=== PATIENT | male | born 1950 | race Caucasian/White ===

== ENCOUNTER 2022-07-29 05:38 | Observation (INO) | payer BC, MEDICARE ==
[2022-07-29] VITALS (17 sets, daily range): BP systolic 100–133; BP diastolic 53–81
[~2022-07-29] VITALS: Ht 177.8 cm; Wt 81.7 kg
[~2022-07-29 05:38] MED LIST: ALLP300T PO; AMLO5TAB2 PO; ASPI325T32 PO; LEVO750T6 PO; LISI10TA2 PO; LISI1TAB PO; NF-ESOM40C PO; RNT150T PO; TERB250T42 PO
[2022-07-29 06:12] LABS: BASOPHILS # (AUTO) 0.1 10^3/uL (0.0-0.1); BASOPHILS % (AUTO) 1 % (0-10); EOSINOPHILS # (AUTO) 1.3 10^3/uL (0.0-0.3); EOSINOPHILS % (AUTO) 9 % (0-10); HEMATOCRIT 40 % (40-54); HEMOGLOBIN 13.5 g/dL (13.3-17.7); LYMPHOCYTES # (AUTO) 2.9 10^3/uL (1.0-4.0); LYMPHOCYTES % (AUTO) 21 % (12-44); MEAN CORPUSCULAR HEMOGLOBIN 31 pg (25-34); MEAN CORPUSCULAR HGB CONC 34 g/dL (32-36); MEAN CORPUSCULAR VOLUME 93 fL (80-99); MEAN PLATELET VOLUME 9.3 fL (9.0-12.2); MONOCYTES # (AUTO) 0.4 10^3/uL (0.0-1.0); MONOCYTES % (AUTO) 3 % (0-12); NEUTROPHILS # (AUTO) 8.7 10^3/uL (1.8-7.8); NEUTROPHILS % (AUTO) 62 % (42-75); PLATELET COUNT 230 10^3/uL (130-400); WHITE BLOOD COUNT 13.9 10^3/uL (4.3-11.0)
[2022-07-29 06:26] LABS: PROTHROMBIN TIME PATIENT 13.9 SEC (12.2-14.7)
[2022-07-29 06:33] LABS: ALANINE AMINOTRANSFERASE 22 U/L (0-55); ALBUMIN 2.9 GM/DL (3.2-4.5); ALKALINE PHOSPHATASE 83 U/L (40-136); BILIRUBIN,TOTAL 0.9 MG/DL (0.1-1.0); BUN/CREATININE RATIO 20; CALCIUM 9.4 MG/DL (8.5-10.1); CARBON DIOXIDE 25 MMOL/L (21-32); CHLORIDE 97 MMOL/L (98-107); CREATININE SERUM 1.32 MG/DL (0.60-1.30); GFR ESTIMATED 57; GLUCOSE 155 MG/DL (70-105); MAGNESIUM 1.5 MG/DL (1.6-2.4); POTASSIUM 3.7 MMOL/L (3.6-5.0); SODIUM 133 MMOL/L (135-145); TOTAL PROTEIN 9.2 GM/DL (6.4-8.2)
--- NOTE | 2022-07-29 06:41 | Diagnostic Imaging Report ---
EXAMINATION: Chest 1 view HISTORY: Syncope COMPARISON: 10/16/2013 FINDINGS: Surgical changes from median sternotomy and CABG. Heart size is normal. There are coarse opacities within the mid and lower lungs bilaterally. No pleural effusion or pneumothorax. Degenerative changes of the thoracic spine. Osseous structures are otherwise intact. IMPRESSION: 1. Coarse interstitial opacities within the lower lungs which could be seen with likely cysts or scarring. Pulmonary edema or infection could be within the differential in the appropriate clinical setting. Dictated by: Dictated on workstation # [id number]
--- NOTE | 2022-07-29 06:44 | ED General ---
General Chief Complaint: Trauma-Non Activation Stated Complaint: FALL,HIT HEAD Nursing Triage Note: PT TO RM 8 VIA WC W REPORTS OF PASSING OUT WHILE SITTING IN CHAIR AT APPROX 0515 THIS AM. PT REPORTS HE GOT HOT AND LIGHTHEADED BEFORE HITTING HEAD ON HAT AND CAP SEWER, ABRASION NOTED. PT A&OX4, REPORTS RECENT GENERALIZED SICKNESS, DENIES PAIN. 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 He was sitting in a chair in the kitchen getting ready for work when he became lightheaded and lost consciousness. He has an abrasion on the right frontal scalp. He denies any significant pain or injury. He is alert and oriented. He has not been feeling well for over a week and had a fever this morning. He saw his doctor in the clinic over a week ago. He is not currently being treated for any acute infectious illness. He has history of coronary artery disease. CABG. He is also a diabetic on oral medications. He denies any chest pain or shortness of breath at present. Oxygen saturation was in the upper 80s during initial assessment and was slowly resuscitated to the low 90s with rest. Crackles were heard on chest auscultation bilaterally. Location Injury Occurred: PT HOME (LOAN PIRES MD) Allergies and Home Medications Allergies Coded Allergies: No Known Drug Allergies (Unverified , 10/16/13) Patient Home Medication List Home Medication List Reviewed: Yes (LOAN PIRES MD) Allopurinol (Zyloprim) 300 Mg Tab, 300 MG PO DAILY, (Reported) Entered as Reported by: VALENTIN PEOPLES on 10/16/13 151 Amlodipine Besylate (Amlodipine Besylate) 5 Mg Tablet, 5 MG PO DAILY, (Reported) Entered as Reported by: SUNNY DUCKWORTH on 10/16/131816 Aspirin (Ecotrin) 325 Mg Tablet.dr, 325 MG PO DAILY, (Reported) Entered as Reported by: VALENTIN PEOPLES on 10/16/13 151 Hctz/Lisinopril (Lisinopril-Hctz 20-12.5 Mg Tab) 1 Each Tablet, 1 EACH PO DAILY, (Reported) Entered as Reported by: SUNNY DUCKWORTH on 10/16/131816 Levofloxacin (Levaquin) 750 Mg Tablet, 750 MG PO DAILY Prescribed by: MARIELENA STEVENS on 10/18/13 1333 Ranitidine Hcl (Zantac 150 Mg) 150 Mg Tablet, 300 MG PO DAILY, (Reported) Entered as Reported by: SUNNY DUCKWORTH on 10/16/13 180 Terbinafine Hcl (Lamisil) 250 Mg Tablet, 1 TAB PO DAILY, (Reported) Entered as Reported by: SUNNY DUCKWORTH on 10/16/131816 Review of Systems Review of Systems Constitutional: see HPI EENTM: see HPI Respiratory: see HPI Cardiovascular: see HPI Gastrointestinal: no symptoms reported Genitourinary: no symptoms reported Musculoskeletal: no symptoms reported Skin: see HPI Psychiatric/Neurological: See HPI Hematologic/Lymphatic: No Symptoms Reported Immunological/Allergic: no symptoms reported (LOAN PIRES MD) Past Kbogfhv-Rfqtau-Mdfnlu Hx Patient Social History Tobacco Use?: No Use of E-Cig and/or Vaping dev: No Substance use?: No Alcohol Use?: No (LOAN PIRES MD) Immunizations Up To Date Influenza Vaccine Up-to-Date: Yes; Up-to-Date First/Initial COVID19 Vaccinat: 2020 Second COVID19 Vaccination Jonny: 2020 Third COVID19 Vaccination Date: 2021 COVID19 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 / PFIZ[employer] X2 PER PT (LOAN PIRES MD) Past Medical History Surgeries: Yes CABG Respiratory: No Cardiac: Yes Coronary Artery Disease Neurological: No Reproductive Disorders: No Sexually Transmitted Disease: No HIV/AIDS: No Gastrointestinal: No Musculoskeletal: No Endocrine: Yes Diabetes, Non-Insulin dep HEENT: No Cancer: No Psychosocial: No Adverse Reaction/Blood Tranf: No (LOAN PIRES MD) Family Medical History Family history: Cardiovascular disease 19 FATHER Family history: Diabetes mellitus 19 FATHER Myocardial infarction 19 FATHER, Onset:57 Psychotic disorder 19 MOTHER ( suicide) Physical Exam-Suspected Sepsis Physical Exam Vital Signs Vital Signs - First Documented 07/29/22 05:38 Temp 36.4 Pulse 110 Resp 22 B/P (MAP) 122/67 (85) Pulse Ox 97 O2 Delivery Room Air (CHRISTINE RODRIGEZ MD) Vital Signs Capillary Refill : Less Than 3 Seconds (LOAN PIRES MD) Blood Pressure Mean: 85 Height, Weight, BMI Height: 5'11.00" Weight: 206lbs. 2.0oz. 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 Subtle erythematous scattered rash.) (LOAN PIRES MD) Focused Exam Lactate Level 07/29/22 05:40: Lactic Acid Level 1.61 (CHRISTINE RODRIGEZ MD) Lactic Acid Level Laboratory Tests Test 07/29/22 05:40 Lactic Acid Level 1.61 MMOL/L (0.50-2.00) (CHRISTINE RODRIGEZ MD) Progress/Results/Core Measures Suspected Sepsis SIRS Temperature: Pulse: 110 Respiratory Rate: 22 Laboratory Tests 07/29/22 05:40: Blood Pressure 122 /67 Mean: 85 07/29/22 05:40: Lactic Acid Level 1.61 Laboratory Tests 07/29/22 05:40: Creatinine 1.32H, Total Bilirubin 0.9 (LOAN PIRES MD) Results/Orders Lab Results Laboratory Tests Test 07/29/22 05:40 07/29/22 05:50 Range/Units White Blood Count 13.9 H 4.3-11.0 10^3/uL Red Blood Count 4.32 4.30-5.52 10^6/uL Hemoglobin 13.5 13.3-17.7 g/dL Hematocrit 40 40-54 % Mean Corpuscular Volume 93 80-99 fL Mean Corpuscular Hemoglobin 31 25-34 pg Mean Corpuscular Hemoglobin Concent 34 32-36 g/dL Red Cell Distribution Width 13.6 10.0-14.5 % Platelet Count 230 130-400 10^3/uL Mean Platelet Volume 9.3 9.0-12.2 fL Immature Granulocyte % (Auto) 4 % Neutrophils (%) (Auto) 62 42-75 % Lymphocytes (%) (Auto) 21 12-44 % Monocytes (%) (Auto) 3 0-12 % Eosinophils (%) (Auto) 9 0-10 % Basophils (%) (Auto) 1 0-10 % Neutrophils # (Auto) 8.7 H 1.8-7.8 10^3/uL Lymphocytes # (Auto) 2.9 1.0-4.0 10^3/uL Monocytes # (Auto) 0.4 0.0-1.0 10^3/uL Eosinophils # (Auto) 1.3 H 0.0-0.3 10^3/uL Basophils # (Auto) 0.1 0.0-0.1 10^3/uL Immature Granulocyte # (Auto) 0.5 H 0.0-0.1 10^3/uL Prothrombin Time 13.9 12.2-14.7 SEC INR Comment 1.0 0.8-1.4 Activated Partial Thromboplast Time 29 24-35 SEC Sodium Level 133 L 135-145 MMOL/L Potassium Level 3.7 3.6-5.0 MMOL/L Chloride Level 97 L 98-107 MMOL/L Carbon Dioxide Level 25 21-32 MMOL/L Anion Gap 11 5-14 MMOL/L Blood Urea Nitrogen 26 H 7-18 MG/DL Creatinine 1.32 H 0.60-1.30 MG/DL Estimat Glomerular Filtration Rate 57 BUN/Creatinine Ratio 20 Glucose Level 155 H 70-105 MG/DL Lactic Acid Level 1.61 0.50-2.00 MMOL/L Calcium Level 9.4 8.5-10.1 MG/DL Corrected Calcium 10.3 H 8.5-10.1 MG/DL Magnesium Level 1.5 L 1.6-2.4 MG/DL Total Bilirubin 0.9 0.1-1.0 MG/DL Aspartate Amino Transf (AST/SGOT) 27 5-34 U/L Alanine Aminotransferase (ALT/SGPT) 22 0-55 U/L Alkaline Phosphatase 83 40-136 U/L Myoglobin 150.5 H 10.0-92.0 NG/ML Troponin I < 0.028 <0.028 NG/ML C-Reactive Protein High Sensitivity 2.88 H 0.00-0.50 MG/DL Total Protein 9.2 H 6.4-8.2 GM/DL Albumin 2.9 L 3.2-4.5 GM/DL Influenza Type A (RT-PCR) Not Detected Not Detecte Influenza Type B (RT-PCR) Not Detected Not Detecte SARS-CoV-2 RNA (RT-PCR) Not Detected Not Detecte (CHRISTINE RODRIGEZ MD) My Orders Orders - CHRISTINE RODRIGEZ MD Magnesium 1 Gm/100 Ml Ivpb (Magnesium Kelly (07/29/22 07:15) Ns Iv 1000 Ml (Sodium Chloride 0.9%) (07/29/22 07:38) Ceftriaxone 1 Gm Pre-Mix (Rocephin 1 Gm (07/29/22 07:45) Azithromycin Injection (Zithromax Inject (07/29/22 07:45) Ct Sandra Chest/Noang Abd-Pelv W (07/29/22 07:38) Iohexol Injection (Omnipaque 350 Mg/Ml 1 (07/29/22 08:00) Received Contrast (Hold Metformin- Contr (07/29/22 08:00) Ns (Ivpb) (Sodium Chloride 0.9% Ivpb Bag (07/29/22 08:00) (CHRISTINE RODRIGEZ MD) Medications Given in ED Current Medications Medications Dose Ordered Sig/Chris Route Start Time Stop Time Status Last Admin Dose Admin Magnesium Sulfate/ Dextrose 100 ml @ 100 mls/hr ONCE ONCE IV 07/29/22 07:15 07/29/22 08:14 DC 07/29/22 07:38 100 MLS/HR (CHRISTINE RODRIGEZ MD) Vital Signs/I&O 07/29/22 07/29/22 05:38 08:37 Temp 36.4 Pulse 110 110 Resp 22 16 B/P (MAP) 122/67 (85) 101/56 Pulse Ox 97 98 O2 Delivery Room Air (CHRISTINE RODRIGEZ MD) Vital Signs/I&O Capillary Refill : Less Than 3 Seconds (LOAN PIRES MD) Blood Pressure Mean: 85 Progress Note : Time: 06:45 Progress Note Patient was interviewed and examined upon arrival. He is being evaluated for both possible sepsis and etiology for syncope. Vital signs are stable. Viral swabs were obtained. EKG demonstrated no ischemia. Care of the patient is being transitioned to Dr. Rodrigez at this time. (LOAN PIRES MD) Progress Note : Time: 07:34 Progress Note Patient care assumed at shift change, 72-year-old with seated syncope. Generalized fatigue and malaise for 1 month. Patient had sepsis protocol initiated by outgoing provider. Eye exam revealed well-developed well-nourished 72-year-old male in no acute distress. Room air oxygen saturations 92% without evidence of respiratory distress. Dry mucous membranes. Small abrasion right frontotemporal scalp with no active bleeding. I did not auscultate crackles. Heart was tachycardic with a gallop. No lower extremity edema. Abdomen soft nontender, nondistended. Diffuse papular rash to the torso and lower extremities. No secondary signs of cellulitis observed. Neurologically no focal deficits. Alert and oriented. Blood pressure 109/57 heart rate 116. I reviewed his laboratory studies, CBC leukocytosis at 13, hemoglobin 13, platelets 230. Chemistry shows mildly elevated BUN and creatinine, low magnesium 1.5. Electrolytes otherwise normal. Slightly elevated CRP. Lactic is less than 2. Troponin is undetectable. Chest x-ray shows nonspecific basilar infiltrates versus scarring. CT head and neck reviewed, no intracranial findings, diffuse rather prominent cervical lymphadenopathy on the cervical spine. EKG normal sinus rhythm, tachycardic with a right bundle branch block, QRS 147 QTc 475. Patient denies any current complaints of headache, extremity pain, chest pain, shortness of breath, nausea vomiting. Resting comfortably. Laboratory findings, imaging findings with patient and family who are at the bedside. Recommended observation due to stated syncope, relative hypoxia reported and abnormal findings on the cervical spine and chest x-ray with leukocytosis. I discussed the case with Dr. Ana Cleveland, hospitalist on-call. She recommends a CT angio of the chest to rule out PE as well as abdomen and pelvis with IV contrast. We will also go ahead and start him on community- acquired pneumonia pathway with Rocephin and azithromycin. Family is comfortable with plan of care. All questions have been sought and answered. (CHRISTINE RODRIGEZ MD) ECG Initial ECG Impression Date: Jul 29, 2022 Initial ECG Impression Time: 05:49 Initial ECG Rate: 107 Initial ECG Rhythm: S.Tach Comment Sinus tachycardia with right bundle branch block. No ST elevation or depression. No axis deviation. PAC noted. (LOAN PIRES MD) Diagnostic Imaging Diagonstic Imaging: Xray Plain Films/CT/US/NM/MRI: chest Comments Chest x-ray viewed by me and report reviewed. See report below: NAME: ALVARO CABRAL [facility] REC#: [id number] PT STATUS: REG ER : 1950 PHYSICIAN: LOAN PIRES MD ADMIT DATE: 07/29/22/ER Draft Date of Exam:07/29/22 CHEST 1 VIEW, AP/PA ONLY EXAMINATION: Chest 1 view HISTORY: Syncope COMPARISON: 10/16/2013 FINDINGS: Surgical changes from median sternotomy and CABG. Heart size is normal. There are coarse opacities within the mid and lower lungs bilaterally. No pleural effusion or pneumothorax. Degenerative changes of the thoracic spine. Osseous structures are otherwise intact. IMPRESSION: 1. Coarse interstitial opacities within the lower lungs which could be seen with likely cysts or scarring. Pulmonary edema or infection could be within the differential in the appropriate clinical setting. Dictated on workstation # [id number] Dict: 07/29/2228 Trans: 07/29/22 0641 CVB [id number] Interpreted by: GABY SCHULER DO (LOAN PIRES MD) Departure Communication (Admissions) Time/Spoke to Admitting Phy: 07:[address] Morris, IP to cardiac step down Time/Spoke to Consulting Phy: 08:[address] Curry (CHRISTINE RODRIGEZ MD) Impression Primary Impression: Syncope and collapse Additional Impressions: Hypoxia Dehydration Pneumonia Qualified Codes: J18.9 - Pneumonia, unspecified organism History of CAD (coronary artery disease) Diabetes Qualified Codes: E11.9 - Type 2 diabetes mellitus without complications Disposition: ADMITTED INPATIENT Condition: Stable Admissions Decision to Admit Reason: Admit from ER (General) Decision to Admit/Date: Jul 29, 2022 Time/Decision to Admit Time: 07:32 (CHRISTINE RODRIGEZ MD) Departure-Patient Inst. Referrals: IVAN GARNER DO (PCP/Family) Primary Care Physician LOAN PIRES MD Jul 29, 2022 06:44 CHRISTINE RODRIGEZ MD Jul 29, 2022 07:38
--- NOTE | 2022-07-29 06:53 | Diagnostic Imaging Report ---
EXAMINATION: CT head and CT cervical spine without contrast. TECHNIQUE: Multiple contiguous axial images were obtained through the brain and cervical spine without the use of intravenous contrast. Sagittal and coronal reformations through the cervical spine were then performed. All CT scans use one or more of the following dose optimizing techniques: automated exposure control, MA and/or KvP adjustment based on patient size and exam type or iterative reconstruction. HISTORY: Head and neck pain after injury. COMPARISON: None available. FINDINGS: HEAD: The ventricles and sulci are normal. No abnormal attenuation of brain parenchyma is present. No acute intracranial hemorrhage or abnormal extra-axial fluid collections are present. Calcification of the intracranial ICAs. No hyperdense vessel. The calvarium is intact. The mastoid air cells are clear. The visualized paranasal sinuses are clear. The orbits are normal. C-SPINE: Vertebral body height and alignment are preserved. No acute fracture, dislocation, or destructive osseous process. There is multilevel facet hypertrophy. There is multilevel cervical spondylosis. The paraspinous soft tissues are normal. There are multiple prominent cervical lymph nodes seen throughout the visualized neck. The visualized thyroid gland is normal. There is atelectasis or scarring within the lung apices. IMPRESSION: 1. No acute intracranial abnormality. 2. Degenerative changes of cervical spine without acute osseous abnormality. 3. Multiple prominent bilateral cervical lymph nodes which are nonspecific and may be reactive although neoplastic process would be within the differential. Recommend correlation with any history of malignancy or lymphoma. Dictated by: Dictated on workstation # [id number]
[2022-07-29] MEDS ORDERED: MAGNESIUM 1 GM/100 ML IVPB 100 ML IV ONE (07:15)
[2022-07-29] MEDS ORDERED: NS IV 1000 ML 1,000 ML IV STA (07:38)
[2022-07-29] MEDS ORDERED: cefTRIAXone 1 GM PRE-MIX 50 ML IV ONE (07:45)
[2022-07-29] MEDS ORDERED: AZITHROMYCIN INJECTION 500 MG in NS (IVPB) 250 ML IV ONE (07:45)
[2022-07-29] MEDS ORDERED: NS 100 ML (IVPB) BAG IV ONE (08:00)
[2022-07-29] MEDS ORDERED: HOLD METFORMIN - RECEIVED CONTRAST 20 ML VIAL IV SCH (08:00)
[2022-07-29] MEDS ORDERED: IOHEXOL 350 MG/ML 100 ML (OMNIPAQUE 350) VIAL IV ONE (08:00)
--- NOTE | 2022-07-29 08:39 | Diagnostic Imaging Report ---
INDICATION: hypoxia, tachycardia, syncope CTA chest, abdomen and pelvis Thin axial sections through the chest, abdomen and pelvis are obtained following intravenous contrast bolus. Multiplanar MIP images were reconstructed and reviewed. All CT scans use one or more of the following dose optimizing techniques: automated exposure control, MA and/or KvP adjustment based on patient size and exam type or iterative reconstruction. COMPARISON: 10/16/2013 CTA CHEST: There is good opacification of pulmonary arteries. No filling defect is seen to indicate pulmonary embolism. There is extensive mural plaque and possible ulceration along the lateral aspect of the aortic arch. This is similar to previous study with mild interval progression. There is no intimal flap abnormality identified. There has been development of predominantly subpleural reticular interstitial disease likely representing fibrosis and small airway disease. Coronary artery calcification is noted with previous bypass. There has been adverse change with development of numerous enlarged bilateral axillary, mediastinal and bilateral hilar lymph nodes. Largest x-ray lymph nodes measure up to 3.3 cm long axis on the left. Aorticopulmonary window lymph nodes measure up to 2.2 cm in size with an approximately 3.4 cm precarinal lymph node. Prominent bilateral hilar lymph nodes and subcarinal lymph nodes are present with the largest subcarinal lymph node reaching 3.5 cm long axis. No significant pleural or pericardial fluid. IMPRESSION: 1. No CTA evidence of pulmonary embolism. There is persistent eccentric mural thrombus and possible ulcerated plaque at the level of the aortic arch. 2. Development of moderate axillary, hilar and mediastinal adenopathy. Lymphoma or metastatic disease is not excluded. 3. Developing fibrotic findings in the periphery of the lungs. CT abdomen and pelvis: There has been development of moderate splenomegaly with spleen measuring approximately 15 cm in craniocaudad dimension and 17 cm in anterior posterior dimension. There is no focal hepatic or splenic lesion. The gallbladder is surgically absent. No pancreatic, adrenal gland or focal renal abnormality is seen. There are probable tiny cortical cysts in both kidneys. Occasional mildly prominent central retroperitoneal lymph nodes are noted without pathologically enlarged abdominal adenopathy. Unopacified images of the bladder are unremarkable. Prominent inguinal lymph nodes measure up to approximately 2.1 cm long axis. External iliac lymph nodes measure up to 3.3 cm long axis on the right. There is moderate aortoiliac atherosclerotic calcification and intramural plaque which has increased when compared to previous study. There is advanced L5-S1 degenerative disc disease. IMPRESSION: 1. Splenomegaly and pelvic adenopathy. Again findings could be related to lymphoma or possible metastatic disease. 2. Worsening aortoiliac atherosclerotic disease with eccentric mural plaque and/or thrombus most pronounced in the mid abdominal aorta. Dictated by: Dictated on workstation # [id number]
[2022-07-29] MEDS: NS IV 1000 ML 1,000 ML IV SCH ×3 (10:40→23:52)
[2022-07-29] MEDS ORDERED: ALLO300T2 PO (12:05)
[2022-07-29] MEDS ORDERED: CETI10TA17 PO (12:05)
[2022-07-29] MEDS ORDERED: LISI1TAB46 PO (12:05)
[2022-07-29] MEDS ORDERED: AMLO-250 PO (12:05)
[2022-07-29] MEDS ORDERED: FURO20TA4 PO (12:05)
[2022-07-29] MEDS ORDERED: MONT-40 PO (12:05)
[2022-07-29] MEDS ORDERED: METF-865 PO (12:05)
[2022-07-29] MEDS ORDERED: PIOG30TA71 PO (12:05)
[2022-07-29] MEDS ORDERED: ASPI-932 PO (12:05)
--- NOTE | 2022-07-29 12:06 | History & Physical ---
SONALI MILES 07/29/22 1206: History of Present Illness History of Present Illness Reason for visit/HPI Patient is a 72 year old male with a past history of CAD, quadruple bypass surgery, and knd-hxizukm-nvilsihmo type II DM who presents to the ED on 07/29 with chief complaint of syncope. He states that he was sitting in the kitchen getting ready for work at about 5:15AM when he began to feel hot, flushed, and light- headed. He sat down and his heard him fall to the ground a few minutes later. The patient does not remember falling, and says the next thing he remembers is being picked up from the floor. The patient hit his head on a senior process analyst during the fall, and there is a small scabbed-over lesion on the right side of the patient's head. Currently, the patient feels well and has no complaints. They have had no further syncopal episodes, however, the patient reports that he is reluctant to get up and walk around for fear of triggering another syncopal episode. The patient has a cough which they state started a couple of days ago. The patient says that is cough is a chronic problem that starts out as a dry cough and progresses over several weeks and starts producing sputum until he visits his PCP and is treated with steroids and antibiotics. The patient is not sure exactly how long this has been going on but states it has been quite a while. The patient also reports having a papular rash with erythema worse on the chest and abdomen, but also present on the back and legs. He reports that these areas are pruritic and that they started showing up about two weeks ago. The patient's states that over the past few months he has been increasingly tired and fatigued. EKG showed sinus tachycardia with RBBB and atri al premature complex. Imaging showed no signs of pulmonary embolism or acute changes, but did reveal worsening aortoiliac atherosclerosis as well as multiple areas of lymphadenopathy. Date of Admission Jul 29, 2022 at 07:30 Time Seen by a Provider: 10:00 I consulted on this patient on 07/29/22 11:54 Attending Physician Hardy Wilder DO Admitting Physician Admitting Physician: Vale Bonilla MD Attending Physician: Vale Bonilla MD Consult Allergies and Home Medications Allergies Coded Allergies: No Known Drug Allergies (Unverified , 10/16/13) Patient Home Medication List Home Medication List Reviewed: Yes Allopurinol (Allopurinol) 300 Mg Tablet, 300 MG PO DAILY, (Reported) Entered as Reported by: SMILEY BUCHANAN on 07/29/221204 Last Action: Continued Amlodipine Besylate (Amlodipine Besylate) 5 Mg Tablet, 2.5 MG PO DAILY, (Reported) Entered as Reported by: SMILEY BUCHANAN on 07/29/221204 Last Action: Held Aspirin (Ecotrin) 325 Mg Tablet.dr, 325 MG PO DAILY, (Reported) Entered as Reported by: SMILEY BUCHANAN on 07/29/221204 Last Action: Held Cetirizine HCl (Cetirizine HCl) 10 Mg Tablet, 10 MG PO HS, (Reported) Entered as Reported by: SMILEY BUCHANAN on 07/29/221204 Last Action: Converted Furosemide (Furosemide) 20 Mg Tablet, 20 MG PO DAILY, (Reported) Entered as Reported by: SMILEY BUCHANAN on 07/29/221204 Last Action: Held Lisinopril/Hydrochlorothiazide (Lisinopril-Hctz 20-12.5 mg Tab) 20 Mg-12.5 Mg Tablet, 1 EA PO DAILY, (Reported) Entered as Reported by: SMILEY BUCHANAN on 07/29/221204 Last Action: Held Metformin HCl (Metformin HCl ER) 500 Mg Tab.er.24h, 1,000 MG PO DAILY, (Reported) Entered as Reported by: SMILEY BUCHANAN on 07/29/221204 Last Action: Held Montelukast Sodium (Montelukast Sodium) 10 Mg Tablet, 10 MG PO DAILY, (Reported) Entered as Reported by: SMILEY BUCHANAN on 07/29/221204 Last Action: Continued Pioglitazone HCl (Pioglitazone HCl) 30 Mg Tablet, 30 MG PO DAILY, (Reported) Entered as Reported by: SMILEY BUCHANAN on 07/29/221204 Last Action: Held Discontinued Medications Allopurinol (Zyloprim) 300 Mg Tab, 300 MG PO DAILY, (Reported) Discontinued Reason: No Longer Taking Entered as Reported by: VALENTIN PEOPLES on 10/16/13 9042 Last Action: Discontinued Amlodipine Besylate (Amlodipine Besylate) 5 Mg Tablet, 5 MG PO DAILY, (Reported) Discontinued Reason: No Longer Taking Entered as Reported by: SUNNY DUCKWORTH on 10/16/131816 Last Action: Discontinued Aspirin (Ecotrin) 325 Mg Tablet.dr, 325 MG PO DAILY, (Reported) Discontinued Reason: No Longer Taking Entered as Reported by: VALENTIN PEOPLES on 10/16/13 151 Last Action: Discontinued Hctz/Lisinopril (Lisinopril-Hctz 20-12.5 Mg Tab) 1 Each Tablet, 1 EACH PO DAILY, (Reported) Discontinued Reason: No Longer Taking Entered as Reported by: SUNNY DUCKWORTH on 10/16/131816 Last Action: Discontinued Levofloxacin (Levaquin) 750 Mg Tablet, 750 MG PO DAILY Discontinued Reason: No Longer Taking Prescribed by: MARIELENA STEVENS on 10/18/13 1333 Last Action: Discontinued Ranitidine Hcl (Zantac 150 Mg) 150 Mg Tablet, 300 MG PO DAILY, (Reported) Discontinued Reason: No Longer Taking Entered as Reported by: SUNNY DUCKWORTH on 10/16/131808 Last Action: Discontinued Terbinafine Hcl (Lamisil) 250 Mg Tablet, 1 TAB PO DAILY, (Reported) Discontinued Reason: No Longer Taking Entered as Reported by: SUNNY DUCKWORTH on 10/16/131816 Last Action: Discontinued Past Wbyymjc-Fqgblj-Ifbmzr Hx Patient Social History Marrital Status: Tobacco Use?: Yes Smoking Status: Former Smoker (quit 34 years ago) Use of E-Cig and/or Vaping dev: No Substance use?: No Alcohol Use?: No (reports 1-2 beers daily until 3 months ago) Additional Alcohol Comments: FORMER DRINKER QUIT 3 MONTHS AGO Pt feels they are or have been: No Immunizations Up To Date Date of Influenza Vaccine: Apr 28, 2022 First/Initial COVID19 Vaccinat: 2020 Second COVID19 Vaccination Jonny: 2020 Tetanus Booster (TDap): Less Than 5 Years Current Status Advance Directives: No Communicates: Verbally Primary Language: Faroese Preferred Spoken Language: Faroese Is interpretation needed?: No Sensory deficits: Vision impairment Implanted or Applied Medical D: None Past Medical History Surgeries: CABG Coronary Artery Disease Sexually Transmitted Disease: No HIV/AIDS: No Diabetes, Non-Insulin dep Adverse Reaction/Blood Tranf: No Family Medical History Family history: Cardiovascular disease 19 FATHER Family history: Diabetes mellitus 19 FATHER Myocardial infarction 19 FATHER, Onset:57 Psychotic disorder 19 MOTHER ( suicide) Review of Systems Constitutional: chills, fever EENTM: No hearing loss, No vision loss Respiratory: cough (dry, mild); No short of breath Cardiovascular: No chest pain, No edema Gastrointestinal: No abdominal pain, No constipation, No diarrhea Genitourinary: No dysuria, No hematuria, No incontinence Musculoskeletal: No muscle stiffness, No muscle cramps Skin: No change in hair/nails; pruritus, rash Psychiatric/Neurological: Denies Numbness, Denies Tingling, Denies Tremors Physical Exam Vital Signs Vital Signs - First Documented 07/29/22 05:38 Temp 36.4 Pulse 110 Resp 22 B/P (MAP) 122/67 (85) Pulse Ox 97 O2 Delivery Room Air Capillary Refill : Less Than 3 Seconds Height, Weight, BMI Height: 5'11.00" Weight: 206lbs. 2.0oz. 93.337690le; 25.11 BMI Method:Stated General Appearance: No Apparent Distress, WD/WN HEENT: PERRL/EOMI, Pharynx Normal Neck: Non Tender, Supple Respiratory: Chest Non Tender, No Accessory Muscle Use, No Respiratory Distress, Crackles (lower lobes b/l) Cardiovascular: No Edema, No JVD, Normal Peripheral Pulses Gastrointestinal: Non Tender, Soft Rectal: Deferred Back: No Vertebral Tenderness Extremity: Normal Capillary Refill, Non Tender, No Pedal Edema Neurologic/Psychiatric: Alert, Oriented x3 Skin: Warm/Dry, Erythema, Rash Lymphatic: No Adenopathy Assessment/Plan Assessment and Plan Syncope Obtaining orthostatic pressures Cardiology consulted Lymphadenopathy Will consult radiology for possible biopsy Hypokalemic - monitor and replace as needed Hyponatremic - started on replacement, will continue to monitor NELLI - IV fluids, monitor BUN & Creatinine Leukocytosis Started on azithromycin Started on ceftriaxone Hyperglycemia - 155 non-fasting Admission Diagnosis Syncope VALE BONILLA MD 07/29/22 2010: Allergies and Home Medications Allergies Coded Allergies: No Known Drug Allergies (Unverified , 10/16/13) Patient Home Medication List Allopurinol (Allopurinol) 300 Mg Tablet, 300 MG PO DAILY, (Reported) Entered as Reported by: SMILEY BUCHANAN on 07/29/22 5789 Last Action: Continued Amlodipine Besylate (Amlodipine Besylate) 5 Mg Tablet, 2.5 MG PO DAILY, (Reported) Entered as Reported by: SMILEY BUCHANAN on 07/29/221204 Last Action: Held Aspirin (Ecotrin) 325 Mg Tablet.dr, 325 MG PO DAILY, (Reported) Entered as Reported by: SMILEY BUCHANAN on 07/29/221204 Last Action: Held Cetirizine HCl (Cetirizine HCl) 10 Mg Tablet, 10 MG PO HS, (Reported) Entered as Reported by: SMILEY BUCHANAN on 07/29/221204 Last Action: Converted Furosemide (Furosemide) 20 Mg Tablet, 20 MG PO DAILY, (Reported) Entered as Reported by: SMILEY BUCHANAN on 07/29/221204 Last Action: Held Lisinopril/Hydrochlorothiazide (Lisinopril-Hctz 20-12.5 mg Tab) 20 Mg-12.5 Mg Tablet, 1 EA PO DAILY, (Reported) Entered as Reported by: SMILEY BUCHANAN on 07/29/221204 Last Action: Held Metformin HCl (Metformin HCl ER) 500 Mg Tab.er.24h, 1,000 MG PO DAILY, (Reported) Entered as Reported by: SMILEY BUCHANAN on 07/29/221204 Last Action: Held Montelukast Sodium (Montelukast Sodium) 10 Mg Tablet, 10 MG PO DAILY, (Reported) Entered as Reported by: SMILEY BUCHANAN on 07/29/221204 Last Action: Continued Pioglitazone HCl (Pioglitazone HCl) 30 Mg Tablet, 30 MG PO DAILY, (Reported) Entered as Reported by: SMILEY BUCHANAN on 07/29/221204 Last Action: Held Discontinued Medications Allopurinol (Zyloprim) 300 Mg Tab, 300 MG PO DAILY, (Reported) Discontinued Reason: No Longer Taking Entered as Reported by: VALENTIN PEOPLES on 10/16/131511 Last Action: Discontinued Amlodipine Besylate (Amlodipine Besylate) 5 Mg Tablet, 5 MG PO DAILY, (Reported) Discontinued Reason: No Longer Taking Entered as Reported by: SUNNY DUCKWORTH on 10/16/131816 Last Action: Discontinued Aspirin (Ecotrin) 325 Mg Tablet.dr, 325 MG PO DAILY, (Reported) Discontinued Reason: No Longer Taking Entered as Reported by: VALENTIN PEOPLES on 10/16/131511 Last Action: Discontinued Hctz/Lisinopril (Lisinopril-Hctz 20-12.5 Mg Tab) 1 Each Tablet, 1 EACH PO DAILY, (Reported) Discontinued Reason: No Longer Taking Entered as Reported by: SUNNY DUCKWORTH on 10/16/131816 Last Action: Discontinued Levofloxacin (Levaquin) 750 Mg Tablet, 750 MG PO DAILY Discontinued Reason: No Longer Taking Prescribed by: MARIELENA STEVENS on 10/18/13 1333 Last Action: Discontinued Ranitidine Hcl (Zantac 150 Mg) 150 Mg Tablet, 300 MG PO DAILY, (Reported) Discontinued Reason: No Longer Taking Entered as Reported by: SUNNY DUCKWORTH on 10/16/13 180 Last Action: Discontinued Terbinafine Hcl (Lamisil) 250 Mg Tablet, 1 TAB PO DAILY, (Reported) Discontinued Reason: No Longer Taking Entered as Reported by: SUNNY DUCKWORTH on 10/16/131816 Last Action: Discontinued Past Aopjnhb-Jyyxxd-Ffsfbu Hx Family Medical History Family history: Cardiovascular disease 19 FATHER Family history: Diabetes mellitus 19 FATHER Myocardial infarction 19 FATHER, Onset:57 Psychotic disorder 19 MOTHER ( suicide) Assessment/Plan Assessment and Plan Patient admitted due to a syncopal episode. He fell and struck head on the senior process analyst. He has had increasing weakness and lightheadedness over the past few weeks worse since starting lasix. He passed out this morning in the kitchen and came to the ER for evaluation. His has been trying to get him in to see his bingo cashier for a while but he has been resistant. CT Head was done and was negative ofr ICH but did note significant cervical lymphadenopaty. Because of that and the syncoep CTA chest was done along with CT abd.plevis. This revealed further adenopathy throughout his chest and pelvis but no PE. He was admitted for further work up. We will get orthostatics, monitor on telemetry, get echo and consult cardiology given significant history of CAD and CABG. I have also discussed the case with Dr Hair, Dr Maxwell, and Dr Robertson regarding his prominent lymphadenopathy. Ultimatley a suitable cervical lymph was identified by surgeon for resection for biopsy. Family was updated on this plan. For his NELLI we will contineu IVF and hold diuretics. Surgery reports plan for OR tomorrow. l Admission Diagnosis Admission Status: Observation Supervisory-Addendum Brief Verification & Attestation Participated in pt care: history, MDM, physical Personally performed: exam, history, MDM, supervision of care Care discussed with: Medical Student Procedures: n/a Results interpretation: Verified all documentation Verification and Attestation of Medical Student E/M Service A medical student performed and documented this service in my presence. I reviewed and verified all information documented by the medical student and made modifications to such information, when appropriate. I personally performed the physical exam and medical decision making. Vale Bonilla, Jul 29, 2022,20:10 SONALI MILES Jul 29, 2022 12:06 VALE BONILLA MD Jul 29, 2022 20:10
[2022-07-29] MEDS ORDERED: predniSONE 20 MG TAB PO NR (13:15)
[2022-07-29] MEDS ORDERED: RT-ALBUTEROL SULF 2.5 MG/3 ML PRE-MIX VIAL INH PRN (16:30)
--- NOTE | 2022-07-29 16:47 | Consultation - Surgery ---
JARRET WEATHERS 07/29/22 1647: History of Present Illness History of Present Illness Patient Consulted On(bridget/time) 07/29/22 16:41 Date Seen by Provider: Jul 29, 2022 Time Seen by Provider: 04:15 Reason for Visit: Syncope History of Present Illness Campbell Guadalupe is a 72yo male presenting due to syncope. Pt noticed sudden onset worsening syncope while getting ready to work this morning around 5am. Pt did lose consciousness and hit his R. frontal scalp before landing on the ground. Pt states that before there was associated flushing and hot flashes before LOC. Pt not sure how long that he was LOC, but thinks it was less than 5min. Pt remained dizzy on his way to the ED. This prompted his visit to the ED. Pt has had syncope before but nothing like this; typically when bending down then bending up get retrieve different things, but slowing down and rest typically helped previous episodes of syncope. Pt currently states he doesn't have dizziness sensation. Upon arrival to ED pt recieved CXR, CT Head/Cervical and CT Chest angio; CXR showed b/l cystic changes and scarring; CT Head showed prominent b/l cervical LAD while CT Chest Angio showed development of nodular axillary, hilar, and mediastinal LAD as well as eccentric mural thrombus and possible ulcerated plaque @ aortic arch; CT Abdomen/Pelvs showed Splenomegaly w/ pelvic LAD. General Surgery was consulted due to generalized LAD. Allergies and Home Medications Allergies Coded Allergies: No Known Drug Allergies (Unverified , 10/16/13) Patient Home Medication List Allopurinol (Allopurinol) 300 Mg Tablet, 300 MG PO DAILY, (Reported) Entered as Reported by: SMILEY BUCHANAN on 07/29/221204 Last Action: Reviewed Amlodipine Besylate (Amlodipine Besylate) 5 Mg Tablet, 2.5 MG PO DAILY, (Reported) Entered as Reported by: SMILEY BUCHANAN on 07/29/221204 Last Action: Reviewed Aspirin (Ecotrin) 325 Mg Tablet.dr, 325 MG PO DAILY, (Reported) Entered as Reported by: SMILEY BUCHANAN on 07/29/221204 Last Action: Reviewed Cetirizine HCl (Cetirizine HCl) 10 Mg Tablet, 10 MG PO HS, (Reported) Entered as Reported by: SMILEY BUCHANAN on 07/29/221204 Last Action: Reviewed Furosemide (Furosemide) 20 Mg Tablet, 20 MG PO DAILY, (Reported) Entered as Reported by: SMILEY BUCHANAN on 07/29/221204 Last Action: Reviewed Lisinopril/Hydrochlorothiazide (Lisinopril-Hctz 20-12.5 mg Tab) 20 Mg-12.5 Mg Tablet, 1 EA PO DAILY, (Reported) Entered as Reported by: SMILEY BUCHANAN on 07/29/221204 Last Action: Reviewed Metformin HCl (Metformin HCl ER) 500 Mg Tab.er.24h, 1,000 MG PO DAILY, (Reported) Entered as Reported by: SMILEY BUCHANAN on 07/29/221204 Last Action: Reviewed Montelukast Sodium (Montelukast Sodium) 10 Mg Tablet, 10 MG PO DAILY, (Reported) Entered as Reported by: SMILEY BUCHANAN on 07/29/221204 Last Action: Reviewed Pioglitazone HCl (Pioglitazone HCl) 30 Mg Tablet, 30 MG PO DAILY, (Reported) Entered as Reported by: SMILEY BUCHANAN on 07/29/221204 Last Action: Reviewed Discontinued Medications Allopurinol (Zyloprim) 300 Mg Tab, 300 MG PO DAILY, (Reported) Discontinued Reason: No Longer Taking Entered as Reported by: VALENTIN PEOPLES on 10/16/131511 Last Action: Discontinued Amlodipine Besylate (Amlodipine Besylate) 5 Mg Tablet, 5 MG PO DAILY, (Reported) Discontinued Reason: No Longer Taking Entered as Reported by: SUNNY DUCKWORTH on 10/16/131816 Last Action: Discontinued Aspirin (Ecotrin) 325 Mg Tablet.dr, 325 MG PO DAILY, (Reported) Discontinued Reason: No Longer Taking Entered as Reported by: VALENTIN PEOPLES on 10/16/131511 Last Action: Discontinued Hctz/Lisinopril (Lisinopril-Hctz 20-12.5 Mg Tab) 1 Each Tablet, 1 EACH PO DAILY, (Reported) Discontinued Reason: No Longer Taking Entered as Reported by: SUNNY DUCKWORTH on 10/16/131816 Last Action: Discontinued Levofloxacin (Levaquin) 750 Mg Tablet, 750 MG PO DAILY Discontinued Reason: No Longer Taking Prescribed by: MARIELENA STEVENS on 10/18/13 1333 Last Action: Discontinued Ranitidine Hcl (Zantac 150 Mg) 150 Mg Tablet, 300 MG PO DAILY, (Reported) Discontinued Reason: No Longer Taking Entered as Reported by: SUNNY DUCKWORTH on 10/16/131808 Last Action: Discontinued Terbinafine Hcl (Lamisil) 250 Mg Tablet, 1 TAB PO DAILY, (Reported) Discontinued Reason: No Longer Taking Entered as Reported by: SUNNY DUCKWORTH on 10/16/131816 Last Action: Discontinued Past Iwwcslo-Zbwnce-Avhicy Hx Patient Social History Smoking Status: Former Smoker (quit 34 years ago) Alcohol Use?: No (reports 1-2 beers daily until 3 months ago) Have you traveled recently?: No Immunizations Up To Date Date of Influenza Vaccine: Apr 28, 2022 Surgeries History of Surgeries: Yes Surgeries: CABG Respiratory History of Respiratory Disorde: No Cardiovascular History of Cardiac Disorders: Yes Cardiac Disorders: Coronary Artery Disease Neurological History of Neurological Disord: No Reproductive System Hx Reproductive Disorders: No Sexually Transmitted Disease: No HIV/AIDS: No Gastrointestinal History of Gastrointestinal Di: No Musculoskeletal History of Musculoskeletal Dis: No Endocrine History of Endocrine Disorders: Yes Endocrine Disorders: Diabetes, Non-Insulin dep HEENT History of HEENT Disorders: No Cancer History of Cancer: No Psychosocial History of Psychiatric Problem: No Blood Transfusions Adverse Reaction to a Blood Tr: No Family Medical History Significant Family History: CAD Over 55 Years Old Family Medial History: Family history: Cardiovascular disease 19 FATHER Family history: Diabetes mellitus 19 FATHER Myocardial infarction 19 FATHER, Onset:57 Psychotic disorder 19 MOTHER ( suicide) Review of Systems-General Constitutional: other (Hot flashes and Fatigue ) EENTM: No eye pain Respiratory: cough; No short of breath Gastrointestinal: No abdominal pain, No diarrhea, No nausea, No vomiting Genitourinary: No dysuria; frequency (Due to water pill) Psychiatric/Neurological: Denies Headache, Denies Numbness; Tingling (Tingling behind ears radiating down neck) Physical Exam-General Problems Physical Exam Vital Signs Vital Signs - First Documented 07/29/22 07/29/22 05:38 15:12 Temp 36.4 Pulse 110 Resp 22 B/P (MAP) 122/67 (85) Pulse Ox 97 O2 Delivery Room Air O2 Flow Rate 0.00 Capillary Refill : Less Than 3 Seconds General Appearance: no apparent distress, other (Generalized Erythematous Rash on Trunk and Extremities ) Neck: non-tender, supple, normal inspection, lymphadenopathy (R) (Non-tender), lymphadenopathy (L) (Non-tender) Respiratory: chest non-tender, lungs clear, normal breath sounds, no respiratory distress, no accessory muscle use Cardiovascular: normal peripheral pulses, regular rate, rhythm, no edema, no JVD, no murmur Peripheral Pulses: 2+ Radial Pulses (R), 2+ Radial Pulses (L) Gastrointestinal: normal bowel sounds, soft, tenderness (Epigastric ) Back: normal inspection Extremities: normal range of motion, non-tender Neurologic/Psychiatric: alert, normal mood/affect, oriented x 3 Skin: normal color, warm/dry Data Review Labs Laboratory Tests 07/29/22 05:40: White Blood Count 13.9H, Red Blood Count 4.32, Hemoglobin 13.5, Hematocrit 40, Mean Corpuscular Volume 93, Mean Corpuscular Hemoglobin 31, Mean Corpuscular Hemoglobin Concent 34, Red Cell Distribution Width 13.6, Platelet Count 230, Mean Platelet Volume 9.3, Immature Granulocyte % (Auto) 4, Neutrophils (%) (Auto) 62, Lymphocytes (%) (Auto) 21, Monocytes (%) (Auto) 3, Eosinophils (%) (Auto) 9, Basophils (%) (Auto) 1, Neutrophils # (Auto) 8.7H, Lymphocytes # (Auto) 2.9, Monocytes # (Auto) 0.4, Eosinophils # (Auto) 1.3H, Basophils # (Auto) 0.1, Immature Granulocyte # (Auto) 0.5H, Prothrombin Time 13.9, INR Comment 1.0, Activated Partial Thromboplast Time 29, Sodium Level 133L, Potassium Level 3.7, Chloride Level 97L, Carbon Dioxide Level 25, Anion Gap 11, Blood Urea Nitrogen 26H, Creatinine 1.32H, Estimat Glomerular Filtration Rate 57, BUN/Creatinine Ratio 20, Glucose Level 155H, Lactic Acid Level 1.61, Calcium Level 9.4, Corrected Calcium 10.3H, Magnesium Level 1.5L, Total Bilirubin 0.9, Aspartate Amino Transf (AST/SGOT) 27, Alanine Aminotransferase (ALT/SGPT) 22, Alkaline Phosphatase 83, Myoglobin 150.5H, Troponin I < 0.028, C-Reactive Protein High Sensitivity 2.88H, Total Protein 9.2H, Albumin 2.9L 07/29/22 05:50: Influenza Type A (RT-PCR) Not Detected, Influenza Type B (RT-PCR) Not Detected, SARS-CoV-2 RNA (RT-PCR) Not Detected 07/29/22 13:47: Troponin I < 0.028 Radiology Date of Exam:07/29/22 CHEST 1 VIEW, AP/PA ONLY EXAMINATION: Chest 1 view HISTORY: Syncope COMPARISON: 10/16/2013 FINDINGS: Surgical changes from median sternotomy and CABG. Heart size is normal. There are coarse opacities within the mid and lower lungs bilaterally. No pleural effusion or pneumothorax. Degenerative changes of the thoracic spine. Osseous structures are otherwise intact. IMPRESSION: 1. Coarse interstitial opacities within the lower lungs which could be seen with likely cysts or scarring. Pulmonary edema or infection could be within the differential in the appropriate clinical setting. Date of Exam:07/29/22 CT HEAD/CERVICAL SPINE WO EXAMINATION: CT head and CT cervical spine without contrast. TECHNIQUE: Multiple contiguous axial images were obtained through the brain and cervical spine without the use of intravenous contrast. Sagittal and coronal reformations through the cervical spine were then performed. All CT scans use one or more of the following dose optimizing techniques: automated exposure control, MA and/or KvP adjustment based on patient size and exam type or iterative reconstruction. HISTORY: Head and neck pain after injury. COMPARISON: None available. FINDINGS: HEAD: The ventricles and sulci are normal. No abnormal attenuation of brain parenchyma is present. No acute intracranial hemorrhage or abnormal extra-axial fluid collections are present. Calcification of the intracranial ICAs. No hyperdense vessel. The calvarium is intact. The mastoid air cells are clear. The visualized paranasal sinuses are clear. The orbits are normal. C-SPINE: Vertebral body height and alignment are preserved. No acute fracture, dislocation, or destructive osseous process. There is multilevel facet hypertrophy. There is multilevel cervical spondylosis. The paraspinous soft tissues are normal. There are multiple prominent cervical lymph nodes seen throughout the visualized neck. The visualized thyroid gland is normal. There is atelectasis or scarring within the lung apices. IMPRESSION: 1. No acute intracranial abnormality. 2. Degenerative changes of cervical spine without acute osseous abnormality. 3. Multiple prominent bilateral cervical lymph nodes which are nonspecific and may be reactive although neoplastic process would be within the differential. Recommend correlation with any history of malignancy or lymphoma. Date of Exam:07/29/22 CT LAST CHEST/NOANG ABD-PELV W INDICATION: hypoxia, tachycardia, syncope CTA chest, abdomen and pelvis Thin axial sections through the chest, abdomen and pelvis are obtained following intravenous contrast bolus. Multiplanar MIP images were reconstructed and reviewed. All CT scans use one or more of the following dose optimizing techniques: automated exposure control, MA and/or KvP adjustment based on patient size and exam type or iterative reconstruction. COMPARISON: 10/16/2013 CTA CHEST: There is good opacification of pulmonary arteries. No filling defect is seen to indicate pulmonary embolism. There is extensive mural plaque and possible ulceration along the lateral aspect of the aortic arch. This is similar to previous study with mild interval progression. There is no intimal flap abnormality identified. There has been development of predominantly subpleural reticular interstitial disease likely representing fibrosis and small airway disease. Coronary artery calcification is noted with previous bypass. There has been adverse change with development of numerous enlarged bilateral axillary, mediastinal and bilateral hilar lymph nodes. Largest x-ray lymph nodes measure up to 3.3 cm long axis on the left. Aorticopulmonary window lymph nodes measure up to 2.2 cm in size with an approximately 3.4 cm precarinal lymph node. Prominent bilateral hilar lymph nodes and subcarinal lymph nodes are present with the largest subcarinal lymph node reaching 3.5 cm long axis. No significant pleural or pericardial fluid. IMPRESSION: 1. No CTA evidence of pulmonary embolism. There is persistent eccentric mural thrombus and possible ulcerated plaque at the level of the aortic arch. 2. Development of moderate axillary, hilar and mediastinal adenopathy. Lymphoma or metastatic disease is not excluded. 3. Developing fibrotic findings in the periphery of the lungs. CT abdomen and pelvis: There has been development of moderate splenomegaly with spleen measuring approximately 15 cm in craniocaudad dimension and 17 cm in anterior posterior dimension. There is no focal hepatic or splenic lesion. The gallbladder is surgically absent. No pancreatic, adrenal gland or focal renal abnormality is seen. There are probable tiny cortical cysts in both kidneys. Occasional mildly prominent central retroperitoneal lymph nodes are noted without pathologically enlarged abdominal adenopathy. Unopacified images of the bladder are unremarkable. Prominent inguinal lymph nodes measure up to approximately 2.1 cm long axis. External iliac lymph nodes measure up to 3.3 cm long axis on the right. There is moderate aortoiliac atherosclerotic calcification and intramural plaque which has increased when compared to previous study. There is advanced L5-S1 degenerative disc disease. IMPRESSION: 1. Splenomegaly and pelvic adenopathy. Again findings could be related to lymphoma or possible metastatic disease. 2. Worsening aortoiliac atherosclerotic disease with eccentric mural plaque and/or thrombus most pronounced in the mid abdominal aorta. Assessment/Plan Assessment/Plan Assessment/Plan Syncope Generalized Lymphadenopathy Rash Leukocytosis NELLI Hyponatremia Hyperglycemia Generalized Non-tender LAD; Raises concern for malignancy; Planning for Surgery tomorrow; NPO after Midnight Consider Infectious Testing for HIV and Syphilis Consider investigation of home medications as cause of Generalized LAD; Pt is on Allopurinol, has skin rash and lymph node enlargement and eosinophila - Consider DRESS Syndrome Erythematous rash on trunk and extremities; presented 3 weeks ago and itchy Prednisone Trend Renal Function w/ Chemistry IVF Consider Sliding Scale Insulin CARL OTERO DO 07/29/222000: History of Present Illness History of Present Illness History of Present Illness Consult requested by Dr Morris for lymph node erosional biopsy Patient admitted for syncopal episode. Patient had a loss of consciousness and hit right side of head. Doing okay now. Patient states has been having low grade fevers recently. Not feeling well. Patient wiht recent pappular, pruritic rash that is diffuse. Patient with ct scans: CT Head showed prominent b/l cervical LAD while CT Chest Angio showed development of nodular axillary, hilar, and mediastinal LAD as well as eccentric mural thrombus and possible ulcerated plaque @ aortic arch; CT Abdomen/Pelvs showed Splenomegaly w/ pelvic LAD. General Surgery was consulted due to generalized LAD. Allergies and Home Medications Allergies Coded Allergies: No Known Drug Allergies (Unverified , 10/16/13) Patient Home Medication List Home Medication List Reviewed: Yes Allopurinol (Allopurinol) 300 Mg Tablet, 300 MG PO DAILY, (Reported) Entered as Reported by: SMILEY BUCHANAN on 07/29/221204 Last Action: Reviewed Amlodipine Besylate (Amlodipine Besylate) 5 Mg Tablet, 2.5 MG PO DAILY, (Reported) Entered as Reported by: SMILEY BUCHANAN on 07/29/221204 Last Action: Reviewed Aspirin (Ecotrin) 325 Mg Tablet., 325 MG PO DAILY, (Reported) Entered as Reported by: SMILEY BUCHANAN on 07/29/221204 Last Action: Reviewed Cetirizine HCl (Cetirizine HCl) 10 Mg Tablet, 10 MG PO HS, (Reported) Entered as Reported by: SMILEY BUCHANAN on 07/29/221204 Last Action: Reviewed Furosemide (Furosemide) 20 Mg Tablet, 20 MG PO DAILY, (Reported) Entered as Reported by: SMILEY BUCHANAN on 07/29/221204 Last Action: Reviewed Lisinopril/Hydrochlorothiazide (Lisinopril-Hctz 20-12.5 mg Tab) 20 Mg-12.5 Mg Tablet, 1 EA PO DAILY, (Reported) Entered as Reported by: SMILEY BUCHANAN on 07/29/221204 Last Action: Reviewed Metformin HCl (Metformin HCl ER) 500 Mg Tab.er.24h, 1,000 MG PO DAILY, (Reported) Entered as Reported by: SMILEY BUCHANAN on 07/29/221204 Last Action: Reviewed Montelukast Sodium (Montelukast Sodium) 10 Mg Tablet, 10 MG PO DAILY, (Reported) Entered as Reported by: SMILEY BUCHANAN on 07/29/221204 Last Action: Reviewed Pioglitazone HCl (Pioglitazone HCl) 30 Mg Tablet, 30 MG PO DAILY, (Reported) Entered as Reported by: SMILEY BUCHANAN on 07/29/221204 Last Action: Reviewed Discontinued Medications Allopurinol (Zyloprim) 300 Mg Tab, 300 MG PO DAILY, (Reported) Discontinued Reason: No Longer Taking Entered as Reported by: VALENTIN PEOPLES on 10/16/131511 Last Action: Discontinued Amlodipine Besylate (Amlodipine Besylate) 5 Mg Tablet, 5 MG PO DAILY, (Reported) Discontinued Reason: No Longer Taking Entered as Reported by: SUNNY DUCKWORTH on 10/16/131816 Last Action: Discontinued Aspirin (Ecotrin) 325 Mg Tablet.dr, 325 MG PO DAILY, (Reported) Discontinued Reason: No Longer Taking Entered as Reported by: VALENTIN PEOPLES on 10/16/131511 Last Action: Discontinued Hctz/Lisinopril (Lisinopril-Hctz 20-12.5 Mg Tab) 1 Each Tablet, 1 EACH PO DAILY, (Reported) Discontinued Reason: No Longer Taking Entered as Reported by: SUNNY DUCKWORTH on 10/16/131816 Last Action: Discontinued Levofloxacin (Levaquin) 750 Mg Tablet, 750 MG PO DAILY Discontinued Reason: No Longer Taking Prescribed by: MARIELENA STEVENS on 10/18/13 1333 Last Action: Discontinued Ranitidine Hcl (Zantac 150 Mg) 150 Mg Tablet, 300 MG PO DAILY, (Reported) Discontinued Reason: No Longer Taking Entered as Reported by: SUNNY DUCKWORTH on 10/16/131808 Last Action: Discontinued Terbinafine Hcl (Lamisil) 250 Mg Tablet, 1 TAB PO DAILY, (Reported) Discontinued Reason: No Longer Taking Entered as Reported by: SUNNY DUCKWORTH on 10/16/131816 Last Action: Discontinued Past Pjjsoos-Ortsdv-Dphicr Hx Reviewed Nursing Assessment Reviewed/Agree w Nursing PMH: Yes Family Medical History Significant Family History: CAD Over 55 Years Old Family Medial History: Family history: Cardiovascular disease 19 FATHER Family history: Diabetes mellitus 19 FATHER Myocardial infarction 19 FATHER, Onset:57 Psychotic disorder 19 MOTHER ( suicide) Review of Systems-General Constitutional: No chills, No diaphoresis; fever (low grade), other (Hot flashes and Fatigue ) EENTM: No blurred vision, No double vision, No eye pain Respiratory: cough; No short of breath Gastrointestinal: No abdominal pain, No diarrhea, No nausea, No vomiting Genitourinary: No dysuria; frequency Musculoskeletal: No gout, No joint pain Skin: rash Psychiatric/Neurological: Denies Headache, Denies Numbness All Other Systems Reviewed Negative Unless Noted: Yes (Negative excepted noted.) Physical Exam-General Problems Physical Exam General Appearance: WD/WN, no apparent distress HEENT: PERRL/EOMI, normal ENT inspection Neck: non-tender, supple Respiratory: chest non-tender, no respiratory distress, no accessory muscle use Cardiovascular: regular rate, rhythm, no JVD Gastrointestinal: non tender, soft; No tenderness Rectal: deferred Back: no CVA tenderness, no vertebral tenderness Extremities: non-tender, no pedal edema Neurologic/Psychiatric: alert, normal mood/affect, oriented x 3 Skin: normal color, warm/dry, rash (pappular rash diffuse) Lymphatic: no adenopathy Assessment/Plan Assessment/Plan Assessment/Plan Syncope Generalized Lymphadenopathy Rash Leukocytosis NELLI Hyponatremia Hyperglycemia Generalized Non-tender LAD; Raises concern for malignancy; Discussed risks and benefits of right neck lymph node excision all other indicated procedures, Planning for Surgery tomorrow; NPO after Midnight Patient understands and agrees with plan. Erythematous rash on trunk and extremities; presented 3 weeks ago and itchy symptomatic management-primary team Prednisone Trend Renal Function w/ Chemistry IVF Supervisory-Addendum Brief Verification & Attestation Participated in pt care: history, MDM, physical Personally performed: exam, history, MDM, supervision of care Care discussed with: Medical Student Procedures: n/a Results interpretation: Verified all documentation Verification and Attestation of Medical Student E/M Service A medical student performed and documented this service in my presence. I reviewed and verified all information documented by the medical student and made modifications to such information, when appropriate. I personally performed the physical exam and medical decision making. Carl Otero, Jul 29, 2022,20:09 JARRET WEATHERS Jul 29, 2022 16:47 CARL OTERO DO Jul 29, 2022 20:01
[2022-07-30] VITALS (12 sets, daily range): BP systolic 97–130; BP diastolic 58–88
[2022-07-30 06:00] LABS: HEMATOCRIT 34 % (40-54); HEMOGLOBIN 11.4 g/dL (13.3-17.7); MEAN CORPUSCULAR HEMOGLOBIN 31 pg (25-34); MEAN CORPUSCULAR HGB CONC 33 g/dL (32-36); MEAN CORPUSCULAR VOLUME 92 fL (80-99); MEAN PLATELET VOLUME 9.3 fL (9.0-12.2); PLATELET COUNT 173 10^3/uL (130-400)
[2022-07-30 06:19] LABS: CALCIUM 8.6 MG/DL (8.5-10.1); CREATININE SERUM 0.88 MG/DL (0.60-1.30); POTASSIUM 4.1 MMOL/L (3.6-5.0)
[2022-07-30] MEDS: predniSONE 20 MG TAB PO SCH (06:27)
--- NOTE | 2022-07-30 06:34 | Progress Note - Surgery ---
JARRET WEATHERS 07/30/22 0634: Subjective Date Seen by a Provider: Jul 30, 2022 Time Seen by a Provider: 06:20 Subjective/Events-last exam Pt was seen and interviewed today. Pt states that he is doing well w/o any complaints. Pt is planning for Right neck lymph node dissection today by Dr. Ambrosio. Pt has been NPO since midnight. Review of Systems General: No Chills, No Fatigue HEENT: No Head Aches Pulmonary: No Dyspnea, No Cough Cardiovascular: No: Chest Pain, Palpitations, Edema Gastrointestinal: No: Nausea, Vomiting, Abdominal Pain, Diarrhea Genitourinary: No Dysuria Neurological: No: Weakness Focused Exam Lactate Level 07/29/22 05:40: Lactic Acid Level 1.61 Objective Exam Vital Signs Date Time Temp Pulse Resp B/P (MAP) Pulse Ox O2 Delivery O2 Flow Rate FiO2 07/30/22 04:00 36.8 89 21 97/64 (75) 95 Room Air 07/30/22 01:00 97 07/30/22 00:00 101 30 125/67 (86) 94 Room Air 07/29/22 23:57 37.1 102 32 133/81 (98) 34 Room Air 07/29/22 20:17 36.9 106 24 130/69 (89) 93 Room Air 07/29/22 20:00 96 Room Air 07/29/22 19:19 94 Room Air 0.00 07/29/22 19:01 111 07/29/22 16:52 36.9 111 24 133/69 (90) 94 Room Air 07/29/22 15:12 95 Room Air 0.00 07/29/22 15:12 36.5 105 95 07/29/22 12:40 113 07/29/22 12:00 107 38 117/58 (77) 95 Room Air 07/29/22 12:00 36.5 105 24 107/56 (73) Room Air 07/29/22 11:45 112 25 107/56 (73) 93 Room Air 07/29/22 11:15 118 22 106/59 (75) Room Air 07/29/22 11:00 116 21 119/58 (78) 94 Room Air 07/29/22 10:51 121 105/71 (82) 111 119/58 (78) 126 111/71 (84) 07/29/22 10:45 116 27 105/71 (82) 96 Room Air 07/29/22 10:30 116 18 115/62 (79) 95 Room Air 07/29/22 10:15 114 21 105/66 (79) 95 Room Air 07/29/22 10:00 108 28 100/57 (71) 96 Room Air 07/29/22 09:45 112 29 113/62 (79) 94 Room Air 07/29/22 09:30 111 19 111/59 (76) 93 Room Air 07/29/22 09:15 111 19 113/53 (73) 95 Room Air 07/29/22 09:00 112 35 116/61 (79) 95 Room Air 07/29/22 09:00 97 Room Air 07/29/22 08:56 112 07/29/22 08:37 110 16 101/56 98 I & O 07/30/22 07:00 Intake Total 4100 ml Balance 4100 ml Capillary Refill : Less Than 3 Seconds General Appearance: No Apparent Distress, WD/WN HEENT: PERRL/EOMI, Pharynx Normal Neck: Full Range of Motion, Normal Inspection, Non Tender, Supple, Lymphadenopathy (L), Lymphadenopathy (R) Respiratory: Chest Non Tender, No Accessory Muscle Use, No Respiratory Distress, Crackles (lower lobes b/l) Cardiovascular: Regular Rate, Rhythm, No Edema, No JVD, Normal Peripheral Pulses Peripheral Pulses: 2+ Radial Pulses (R), 2+ Radial Pulses (L) Gastrointestinal: normal bowel sounds, non tender, soft Extremity: Normal Capillary Refill, Normal Inspection, Non Tender, No Calf Tenderness, No Pedal Edema Neurologic/Psychiatric: Alert, Oriented x3 Skin: Warm/Dry, Erythema, Rash Lymphatic: Other (B/l Inguinal Lymph Node enlargement; Non-tender) Results Lab Laboratory Tests 07/29/22 13:47: Troponin I < 0.028 07/30/22 05:45: White Blood Count 12.0H, Red Blood Count 3.72L, Hemoglobin 11.4L, Hematocrit 34L , Mean Corpuscular Volume 92, Mean Corpuscular Hemoglobin 31, Mean Corpuscular Hemoglobin Concent 33, Red Cell Distribution Width 13.2, Platelet Count 173, Mean Platelet Volume 9.3, Sodium Level 132L, Potassium Level 4.1, Chloride Level 102, Carbon Dioxide Level 22, Anion Gap 8, Blood Urea Nitrogen 19H, Creatinine 0.88, Estimat Glomerular Filtration Rate 90, BUN/Creatinine Ratio 22, Glucose Level 198H, Calcium Level 8.6, Triglycerides Level 86, Cholesterol Level 96, LDL Cholesterol Direct 63, VLDL Cholesterol 17, HDL Cholesterol 19L Assessment/Plan Assessment/Plan Assessment/Plan Syncope Generalized Lymphadenopathy Rash Leukocytosis NELLI Hyponatremia Hyperglycemia Generalized Non-tender LAD; Raises concern for malignancy; Discussed risks and benefits of right neck lymph node excision all other indicated procedures yesterday, Planning for Surgery today; Pt has been NPO after Midnight; Patient understands and agrees with plan. Erythematous rash on trunk and extremities; presented 3 weeks ago and itchy symptomatic management-primary team Prednisone Trend Renal Function w/ Chemistry IVF MARK AMBROSIO DO 07/30/22 2017: Subjective Subjective/Events-last exam Paitent with no new complaints. NPO for right neck excision of lymph node. Currently denies n/v fever sweats chills shortness of breath or chest pain. Objective Exam General Appearance: No Apparent Distress, WD/WN HEENT: PERRL/EOMI, Normal ENT Inspection Neck: Normal Inspection, Supple, Lymphadenopathy (L), Lymphadenopathy (R) Respiratory: Chest Non Tender, No Accessory Muscle Use, No Respiratory Distress Cardiovascular: Regular Rate, Rhythm, No JVD Gastrointestinal: non tender, soft Extremity: Non Tender, No Calf Tenderness Neurologic/Psychiatric: Alert, Oriented x3 Skin: Warm/Dry, Rash Lymphatic: No Adenopathy Assessment/Plan Assessment/Plan Assessment/Plan Syncope Generalized Lymphadenopathy Rash Leukocytosis NELLI Hyponatremia Hyperglycemia Generalized Non-tender LAD; Raises concern for malignancy; Discussed risks and benefits of right neck lymph node excision all other indicated procedures yesterday, Planning for Surgery today; Pt has been NPO since Midnight; Patient understands and agrees with plan. Erythematous rash on trunk and extremities; presented 3 weeks ago and itchy symptomatic management-primary team Prednisone Trend Renal Function w/ Chemistry IVF Supervisory-Addendum Brief Verification & Attestation Participated in pt care: history, MDM, physical Personally performed: exam, history, MDM, supervision of care Care discussed with: Medical Student Procedures: n/a Results interpretation: Verified all documentation Verification and Attestation of Medical Student E/M Service A medical student performed and documented this service in my presence. I reviewed and verified all information documented by the medical student and made modifications to such information, when appropriate. I personally performed the physical exam and medical decision making. Mark Ambrosio, Jul 30, 2022,16:17 JARRET WEATHERS Jul 30, 2022 06:34 MARK AMBROSIO DO Jul 30, 2022 20:17
--- NOTE | 2022-07-30 08:56 | Cardiology Progress Note ---
Subjective Date Seen by Provider: Jul 30, 2022 Time Seen by Provider: 08:15 Subjective/Events-last exam No acute events overnight. TTE with normal LV/RV function. No further syncope. For biopsy today. Focused Exam Lactate Level 07/29/22 05:40: Lactic Acid Level 1.61 Objective-Cardiology Exam Last Set of Vital Signs Vital Signs 07/29/22 07/30/22 19:19 08:00 Temp 36.7 Pulse 93 Resp 18 B/P (MAP) 115/67 (83) Pulse Ox 97 O2 Delivery Room Air O2 Flow Rate 0.00 I&O Intake and Output 07/30/22 00:00 Intake Total 4100 ml Balance 4100 ml Intake Oral 1700 ml IV Total 2400 ml # Voids 3 Daily Weight Change No General: Alert, Oriented X3, No Acute Distress HEENT: Atraumatic Neck: Supple, No JVD Lungs: Clear to Auscultation, Normal Air Movement Heart: Regular Rate, Normal S1, Normal S2, No Murmurs Abdomen: Normal Bowel Sounds Extremities: No Clubbing, No Cyanosis, No Edema Psych/Mental Status: Mental Status NL Results Lab Laboratory Tests 07/30/22 05:45 A/P-Cardiology Assessment/Plan 72 year old male with a past history of CAD s/p 4v CABG, and bsp-sylccli-rtrnglghy type II DM who presents to the ED on 07/29 with chief complaint of syncope. Pt also noted fatigue, night sweats for the past several months and found to have mediastinal and hilar LAD on CT. ## Lymphadenopathy: B symptoms x 2-3Months. LAD noted on CT - for bx today ## Syncope: Pt reported that he was on norvasc, lisinopril and Hctz and lasix was initiated for hand swelling. He notes that his pre-syncopal sxs worsened after lasix initiation. - home with painter and grader cork for at least 2 weeks - dc lasix, hctz and lisinopirl - re-start norvasc 5 mp o QD monotherapy for now - monitor BPS - suspect syncopal episode was seondary to lasix/hctz/lisnipril/norvasc combination- probably too much anti-HTN effect for this patient ## CAD: - pt should be restarted on ASA post biopsy - he should also start atorvastatin 40 qhs ## Dispo: - f/u with primary commercial review appraiser as outpt DENNY HODGE MD Jul 30, 2022 08:56
[2022-07-30] MEDS ORDERED: AZITHROMYCIN 500 MG/NS 250 ML IVPB IV SCH ×2 (09:00)
[2022-07-30] MEDS ORDERED: HydroCHLOROthiazide CAP/TABLET 12.5 MG TAB PO SCH (09:00)
[2022-07-30] MEDS: cefTRIAXone 1 GM IV (PRE-MIX) 50 ML IV SCH (09:01)
[2022-07-30] MEDS: amLODIPine 5 MG (NORVASC) TAB PO SCH (09:02)
[2022-07-30] MEDS: MONTELUKAST 10 MG (SINGULAIR) TAB PO SCH (09:02)
[2022-07-30] MEDS: ALLOPURINOL 300 MG (ZYLOPRIM) TAB PO SCH (09:03)
[2022-07-30] MEDS: NS IV 1000 ML 1,000 ML IV SCH (10:49)
[2022-07-30] MEDS: inSUlin ASPART (NovoLOG) 1 UNIT/0.01 ML (CHARGE PER UNIT) SC SCH ×3 (11:12→20:42)
--- NOTE | 2022-07-30 12:09 | Progress Note ---
SONALI MILES 07/30/22 1209: Subjective Date Seen by a Provider: Jul 30, 2022 Time Seen by a Provider: 10:00 Subjective/Events-last exam Patient is awake and alert in his bed this morning, at bedside. Patient reports that he feels well this morning and has had no further syncopal episodes. He is scheduled for a lymph node biopsy this afternoon and is currently being held NPO. The patient's rash appears the same as yesterday. He states that the steroid cream has helped somewhat with the pruritus, but that it is still itchy. Patient has no other complaints. Review of Systems General: No Chills, No Night Sweats HEENT: No Head Aches, No Visual Changes Pulmonary: No Cough Cardiovascular: No: Chest Pain, Lt Headedness Gastrointestinal: No: Nausea, Vomiting Genitourinary: No Incontinence, No Hematuria Musculoskeletal: No: neck pain, back pain Neurological: No: Weakness, Numbness Focused Exam Lactate Level 07/29/22 05:40: Lactic Acid Level 1.61 Objective Exam Last Set of Vital Signs Vital Signs Date Time Temp Pulse Resp B/P (MAP) Pulse Ox O2 Delivery O2 Flow Rate FiO2 07/30/22 08:00 Room Air 07/30/22 08:00 36.7 93 18 115/67 (83) 97 07/29/22 19:19 0.00 Capillary Refill : Less Than 3 Seconds I&O Intake and Output 07/30/22 00:00 Intake Total 4100 ml Balance 4100 ml Intake Oral 1700 ml IV Total 2400 ml # Voids 3 Daily Weight Change No General: Alert, Oriented X3, Cooperative HEENT: Atraumatic, PERRLA Neck: Supple Lungs: Clear to Auscultation Heart: Regular Rate, No Murmurs Abdomen: Soft, No Tenderness Extremities: No Edema, Normal Pulses Skin: Other (Rash across the entire trunk, erythematous, pruritic) Neuro: Normal Speech, Sensation Intact Results Lab Laboratory Tests 07/29/22 13:47: Troponin I < 0.028 07/30/22 05:45: White Blood Count 12.0H, Red Blood Count 3.72L, Hemoglobin 11.4L, Hematocrit 34L , Mean Corpuscular Volume 92, Mean Corpuscular Hemoglobin 31, Mean Corpuscular Hemoglobin Concent 33, Red Cell Distribution Width 13.2, Platelet Count 173, Mean Platelet Volume 9.3, Sodium Level 132L, Potassium Level 4.1, Chloride Level 102, Carbon Dioxide Level 22, Anion Gap 8, Blood Urea Nitrogen 19H, Creatinine 0.88, Estimat Glomerular Filtration Rate 90, BUN/Creatinine Ratio 22, Glucose Level 198H, Calcium Level 8.6, Triglycerides Level 86, Cholesterol Level 96, LDL Cholesterol Direct 63, VLDL Cholesterol 17, HDL Cholesterol 19L 07/30/22 11:04: Glucometer 186H Assessment/Plan Assessment/Plan Assess & Plan/Chief Complaint Syncope Orthostatic pressures normal Holding lisinopril and HCTZ, will restart on Norvasc only Cardiology consulted Continue IV fluids Lymphadenopathy Undergoing lymph node biopsy this afternoon Will refer to oncology Non insulin dependent type II DM Glucose of 198 this morning, will start on SSI Holding metformin Anemia Mild, possibly dilutional Will track and trend Hemoglobin Clinical Quality Measures Admission Status Admission Dx Syncope VALE MORRIS MD 07/30/22 1435: Assessment/Plan Assessment/Plan Assess & Plan/Chief Complaint Patient reports feeling better today. No complaints other than being hungry. OR planned from later today to get pathology.No further syncopal episodes. NELLI resolved. Will decrease IVF after surgery when can take PO again. Supervisory-Addendum Brief Verification & Attestation Participated in pt care: history, MDM, physical Personally performed: exam, history, MDM, supervision of care Care discussed with: Medical Student Procedures: n/a Results interpretation: Verified all documentation Verification and Attestation of Medical Student E/M Service A medical student performed and documented this service in my presence. I reviewed and verified all information documented by the medical student and made modifications to such information, when appropriate. I personally performed the physical exam and medical decision making. Vale Morris, Jul 30, 2022,14:32 SONALI MILES Jul 30, 2022 12:09 VALE MORRIS MD Jul 30, 2022 14:35
[2022-07-30] MEDS ORDERED: fentaNYL INJ 100 MCG/2 ML AMP ONE (16:04)
[2022-07-30] MEDS ORDERED: MIDAZOLAM 2 MG/2 ML (VERSED) VIAL ONE (16:04)
[2022-07-30] MEDS ORDERED: SEVOFLURANE (ULTANE) 15 ML INHAL SOLN ONE (16:04)
[2022-07-30] MEDS ORDERED: proPOfol 200 MG/20 ML (DIPRIVAN) VIAL IV ONE (16:04)
[2022-07-30] MEDS ORDERED: ONDANSETRON 4 MG/2 ML (SDV) Z0FRAN ONE (16:04)
[2022-07-30] MEDS ORDERED: LIDOCAINE PF 2% 5 ML (XYLOCAINE) VIAL ONE (16:04)
[2022-07-30] MEDS ORDERED: LIDOCAINE/EPI 1%-1:100,000 (XYLOCAINE) 30ML ONE (16:14)
[2022-07-30] MEDS ORDERED: LACTATED RINGERS 1,000 ML IV PRN (16:45)
--- NOTE | 2022-07-30 16:56 | Anesthesia-General Post-Op ---
General Patient Condition Mental Status/LOC: Same as Preop Cardiovascular: Satisfactory Nausea/Vomiting: Absent Respiratory: Satisfactory Pain: Controlled Complications: Absent Post Op Complications Complications None Follow Up Care/Instructions Patient Instructions None needed. Anesthesia/Patient Condition Patient Condition Patient is doing well, no complaints, stable vital signs, no apparent adverse anesthesia problems. No complications reported per nursing. LELA URRUTIA CRNA Jul 30, 2022 16:56
[2022-07-30] MEDS ORDERED: HYDROmorphone 2 MG/ML VIAL (DILAUDID) IV ONE (17:00)
[2022-07-30] MEDS ORDERED: MEPERIDINE (DEMEROL) INJ 50 MG/ML IVP ONE (17:00)
[2022-07-30] MEDS ORDERED: morphine INJ 10 MG/ML 1ML (SYR OR VIAL) IVP ONE (17:00)
[2022-07-30] MEDS ORDERED: ONDANSETRON 4 MG/2 ML (SDV) Z0FRAN IVP PRN (17:00)
[2022-07-30] MEDS ORDERED: LORATADINE (CLARITIN) 10 MG TAB PO SCH (21:00)
--- NOTE | 2022-07-31 03:11 | OPERATIVE REPORT ---
DATE OF SERVICE: 07/30/2022 PREOPERATIVE DIAGNOSIS: Lymphadenopathy. POSTOPERATIVE DIAGNOSIS: Lymphadenopathy. PROCEDURE: Excision of right neck lymph node. SURGEON: Mark Ambrosio DO ANESTHESIA: General. ESTIMATED BLOOD LOSS: Minimal. COMPLICATIONS: None. INDICATIONS: The patient is a 72-year-old male with diffuse lymphadenopathy. He has a palpable node on the right neck was easily accessed. We discussed risks and benefits of excision. He understands risks and benefits and wishes to proceed. Consent was signed and on chart. DESCRIPTION OF PROCEDURE: The patient was taken to the operating suite where he was prepped and draped in sterile fashion. Timeout was performed. Local anesthetic was infiltrated around the node that was palpable. A 15 blade scalpel was used to make a skin incision over the neck. Cautery was used to dissect down through subcutaneous tissues. The lymph node was able to be dissected around both bluntly and with cautery and excised. This was sent for fresh specimen. Hemostasis was achieved. The skin was then closed using 4-0 Monocryl in a subcuticular running fashion. The skin was then closed with a Skin Affix after the area was washed and dried. The patient tolerated the procedure well without any complications, taken to recovery room in stable condition. Job ID: [id number] DocumentID: [id number] Dictated Date: 07/30/2022 21:03:44 Pet Feeder Date: 07/31/2022 03:08:00 Dictated By: MARK AMBROSIO DO
[2022-07-31 03:53] VITALS: BP 123/67
[2022-07-31 04:00] VITALS: BP 125/67
[2022-07-31] MEDS: NS IV 1000 ML 1,000 ML IV SCH (06:10)
[2022-07-31] MEDS: predniSONE 20 MG TAB PO SCH (06:10)
[2022-07-31] MEDS: inSUlin ASPART (NovoLOG) 1 UNIT/0.01 ML (CHARGE PER UNIT) SC SCH ×2 (06:10→10:56)
--- NOTE | 2022-07-31 06:53 | Progress Note - Surgery ---
JARRET WEATHERS 07/31/22 0653: Subjective Date Seen by a Provider: Jul 31, 2022 Time Seen by a Provider: 06:16 Subjective/Events-last exam Pt is doing well s/p R. cervical lymph node dissection. Pt was laying in bed taking medication w/ nurse during interview and assessment. Pt's incision intact and dry. Pt states that he is feeling better than yesterday, Pt is not currently in any pain. Pt states that his generalized body rash is not as itchy compared to admission. Last night patient tolerated his 60g/m CHO dinner. Pt does not have any current complaints. Review of Systems General: No Chills HEENT: No Head Aches Pulmonary: No Dyspnea Cardiovascular: No: Chest Pain, Palpitations Gastrointestinal: No: Nausea, Vomiting, Diarrhea Genitourinary: No Dysuria, No Frequency Musculoskeletal: No: neck pain Neurological: No: Weakness Focused Exam Lactate Level 07/29/22 05:40: Lactic Acid Level 1.61 Objective Exam Vital Signs Date Time Temp Pulse Resp B/P (MAP) Pulse Ox O2 Delivery O2 Flow Rate FiO2 07/31/22 04:00 93 20 125/67 (86) Room Air 07/31/22 03:53 36.5 92 18 123/67 (85) 89 Room Air 07/31/22 01:00 93 07/30/22 23:44 36.9 90 21 117/68 (84) 93 Room Air 07/30/22 20:00 92 Room Air 07/30/22 20:00 36.2 101 22 129/66 (87) 95 Room Air 07/30/22 19:00 101 07/30/22 17:35 Room Air 07/30/22 17:30 Room Air 07/30/22 17:30 36.9 20 123/88 (100) 96 Room Air 07/30/22 17:20 20 126/66 (86) 96 Room Air 07/30/22 17:15 Room Air 07/30/22 17:10 20 130/68 (88) 98 OxyMask 3.00 07/30/22 17:00 20 109/58 (75) 99 OxyMask 6.00 07/30/22 17:00 OxyMask 4.00 07/30/22 16:49 OxyMask 6.00 07/30/22 16:49 37.4 20 124/66 (85) 99 OxyMask 6.00 07/30/22 16:00 36.5 96 19 128/72 (90) 95 Room Air 07/30/22 12:47 96 07/30/22 12:00 36.1 96 30 124/70 (88) 97 Room Air 07/30/22 08:00 Room Air 07/30/22 08:00 36.7 93 18 115/67 (83) 97 Room Air 07/30/22 07:16 89 I & O 07/31/22 07:00 Intake Total 2500 ml Output Total 2800 ml Balance -300 ml Capillary Refill : Less Than 3 SecondsLess Than 3 Seconds General Appearance: No Apparent Distress, WD/WN HEENT: PERRL/EOMI, Normal ENT Inspection Neck: Normal Inspection, Supple, Lymphadenopathy (L), Lymphadenopathy (R) Respiratory: Chest Non Tender, No Accessory Muscle Use, No Respiratory Distress Cardiovascular: Regular Rate, Rhythm, No JVD, Normal Peripheral Pulses Peripheral Pulses: 2+ Radial Pulses (R), 2+ Radial Pulses (L) Gastrointestinal: non tender, soft Extremity: Non Tender, No Calf Tenderness Neurologic/Psychiatric: Alert, Oriented x3 Skin: Warm/Dry, Rash Lymphatic: No Adenopathy Results Lab Laboratory Tests 07/30/22 11:04: Glucometer 186H 07/30/22 15:19: Glucometer 174H 07/30/22 20:39: Glucometer 308H 07/31/22 06:09: Glucometer 97 Microbiology 07/29/22 MRSA Screen - Final, Complete MRSA not isolated 07/29/22 Blood Culture - Preliminary, Resulted No growth Assessment/Plan Assessment/Plan Assessment/Plan Syncope S/P Right Cervical Lymph Node Dissection Generalized Lymphadenopathy Rash Leukocytosis NELLI Hyponatremia Hyperglycemia S/P Right Cervical Lymph Node Dissection; Incision intact and dry No further syncopal episodes Generalized Non-tender LAD Erythematous rash on trunk and extremities; presented 3 weeks ago and itchy symptomatic management-primary team Prednisone NELLI improved Consider Taper IVF MARK AMBROSIO DO 07/31/222123: Subjective Subjective/Events-last exam No complaints. STates going home today. Pain controlled. Rash improving. Denies n/v fever sweats chills shortness of breath or chest pain. Objective Exam General Appearance: No Apparent Distress, WD/WN HEENT: PERRL/EOMI, Normal ENT Inspection Neck: Normal Inspection, Supple Respiratory: Chest Non Tender, No Accessory Muscle Use, No Respiratory Distress Cardiovascular: Regular Rate, Rhythm, No JVD Gastrointestinal: non tender, soft Extremity: Non Tender, No Calf Tenderness Skin: Warm/Dry, Rash (skin incision right neck c/d/i no signs infection) Lymphatic: No Adenopathy Assessment/Plan Assessment/Plan Assessment/Plan generalized lymphadenopathy no issues from right lymph node excisional biopsy. await biopsy results follow up arranged all questions answered. Supervisory-Addendum Brief Verification & Attestation Participated in pt care: history, MDM, physical Personally performed: exam, history, MDM, supervision of care Care discussed with: Medical Student Procedures: n/a Results interpretation: Verified all documentation Verification and Attestation of Medical Student E/M Service A medical student performed and documented this service in my presence. I reviewed and verified all information documented by the medical student and made modifications to such information, when appropriate. I personally performed the physical exam and medical decision making. Mark Ambrosio, Jul 31, 2022,21:23 JARRET WEATHERS Jul 31, 2022 06:53 MARK AMBROSIO DO Jul 31, 2022 21:24
[2022-07-31 07:54] LABS: HEMATOCRIT 34 % (40-54); HEMOGLOBIN 11.5 g/dL (13.3-17.7); MEAN CORPUSCULAR HEMOGLOBIN 31 pg (25-34); MEAN CORPUSCULAR HGB CONC 33 g/dL (32-36); MEAN CORPUSCULAR VOLUME 94 fL (80-99); MEAN PLATELET VOLUME 9.4 fL (9.0-12.2); PLATELET COUNT 170 10^3/uL (130-400); WHITE BLOOD COUNT 15.1 10^3/uL (4.3-11.0)
[2022-07-31 08:00] VITALS: BP 125/71
[2022-07-31 08:16] LABS: CALCIUM 8.5 MG/DL (8.5-10.1); CREATININE SERUM 0.86 MG/DL (0.60-1.30); POTASSIUM 4.1 MMOL/L (3.6-5.0)
[2022-07-31] MEDS: ALLOPURINOL 300 MG (ZYLOPRIM) TAB PO SCH (08:21)
[2022-07-31] MEDS: amLODIPine 5 MG (NORVASC) TAB PO SCH (08:21)
[2022-07-31] MEDS: MONTELUKAST 10 MG (SINGULAIR) TAB PO SCH (08:22)
[2022-07-31] MEDS: cefTRIAXone 1 GM IV (PRE-MIX) 50 ML IV SCH (08:22)
[2022-07-31] MEDS ORDERED: AZITHROMYCIN 250 MG TAB (ZITHROMAX) PO SCH (09:00)
--- NOTE | 2022-07-31 10:16 | Progress Note - Cardiology ---
Cardiology SOAP Progress Note Subjective: Sitting up in bed States no further episodes of dizzines, syncope or near syncope No c/o CP Feels breathing is ok today Objective: I&O/Vital Signs Weight (Pounds): 206 Weight (Ounces): 2.0 Weight (Calculated Kilograms): 93.081897 Constitutional: AAO x 3, well-developed, other (thin) Respiratory: chest expansion is symmetric, chest is bilaterally symmetric, other (coarse breath sounds) Cardiovascular: regular rate-rhythm, tachycardia Gastrointestional: No tender; soft, audible bowel sounds Extremities: no lower extremity edema bilateral Neurologic/Psychiatric: grossly intact (moves all extremities) Skin: warm/dry, other (Abrasion on right frontal scalp. Subtle erythematous scattered rash.) Results/Procedures: Labs Microbiology 07/29/22 MRSA Screen - Final, Complete MRSA not isolated 07/29/22 Blood Culture - Final, Complete No growth A/P: Assessment: Syncope: Pt reported that he was on norvasc, lisinopril and Hctz and lasix was initiated for hand swelling. He notes that his pre-syncopal sxs worsened after lasix initiation. - felt to be orthostatic hypotension d/t multi-drug regimen - no further episodes following reduction in regimen - Echocardiogram of 07-29-[address] Curry showed LVEF 55-60%. PASP 22 mmHg History of CAD - s/p 4v CABG by Dr. Noyola at [facility] in [place], [place] - has not followed up with a cost analyst Type II DM Lymphadenopathy - CTA of the chest on 07-30-22: No CTA evidence of pulmonary embolism. There is persistent eccentric mural thrombus and possible ulcerated plaque at the level of the aortic arch. Development of moderate axillary, hilar and mediastinal adenopathy. Lymphoma or metastatic disease is not excluded.Developing fibrotic findings in the periphery of the lungs. - CTA abd/pelvis on 07-30-22: Splenomegaly and pelvic adenopathy. Again findings could be related to lymphoma or possible metastatic disease. Worsening aortoiliac atherosclerotic disease with eccentric mural plaque and/or thrombus most pronounced in the mid abdominal aorta. - Biopsy yesterday by Dr. Ambrosio - CTA head and neck on 07-30-22: No acute intracranial abnormality.Degenerative changes of cervical spine without acute osseous abnormality. Multiple prominent bilateral cervical lymph nodes which are nonspecific and may be reactive although neoplastic process would be within the differential. Recommend correlation with any history of malignancy or lymphoma. Plan: Management of possible lymphoma is per medical services - awaiting biopsy results Continue current cardiac regimen No further episodes of syncope following reduction in medications (syncope was from a sitting position) - consider out pt property assessment monitor when discharged Monitor lab Further recs will be based on his hospital course KERA JEAN Jul 31, 2022 10:16
--- NOTE | 2022-07-31 10:37 | Discharge Inst-Simple/Standard ---
Discharge Inst-Standard Patient Instructions/Follow Up Plan of Care/Instructions/FU: Please continue to take your medications as written. Please follow up with your primary care doctor to follow up this hospital stay. Activity as Tolerated: Yes Discharge Diet: Cardiac Diet Return to The Hospital For: Chest pain, shortness of breath, passing out, fever, weakness, if you feel you are getting worse. VALE BONILLA MD Jul 31, 2022 10:37
[2022-07-31] MEDS ORDERED: CEPH500T PO (10:40)
[2022-07-31] MEDS ORDERED: PRD20T PO (10:40)
[2022-07-31] MEDS ORDERED: ATOR40TA PO (10:40)
[2022-07-31] MEDS ORDERED: AMLO-250 PO (10:40)
[2022-07-31] MEDS ORDERED: AZIT250T12 PO (10:40)
[2022-07-31 11:49] VITALS: BP 131/76
[2022-07-31 12:19] VITALS: BP 132/86
--- NOTE | 2022-07-31 13:36 | Progress Note ---
Subjective Date Seen by a Provider: Jul 31, 2022 Time Seen by a Provider: 11:00 Subjective/Events-last exam Patient is laying comfortably in bed with at bedside. Patient reports that he feels well and that his condition continues to improve. He has had no further episodes of syncope since admission. The patient underwent lymph node biopsy yesterday, incision site looks clean and dry. There is still a rash present on his trunk, but he notes that it is not as pruritic and is less erythematous today. The patient has no new complaints and is eager to return home. Review of Systems General: No Fatigue, No Malaise HEENT: No Visual Changes, No Dysphasia Pulmonary: Cough (mild, dry) Cardiovascular: No: Chest Pain, Palpitations, Edema Gastrointestinal: No: Nausea, Vomiting, Abdominal Pain Genitourinary: No Dysuria, No Hematuria Musculoskeletal: No: neck pain, back pain Neurological: No: Weakness, Numbness Focused Exam Lactate Level 07/29/22 05:40: Lactic Acid Level 1.61 Objective Exam Last Set of Vital Signs Vital Signs Date Time Temp Pulse Resp B/P (MAP) Pulse Ox O2 Delivery O2 Flow Rate FiO2 07/31/22 12:19 97 24 132/86 93 Room Air 07/31/22 11:49 36.8 07/30/22 17:10 3.00 Capillary Refill : Less Than 3 SecondsLess Than 3 Seconds I&O Intake and Output 07/31/22 00:00 Intake Total 900 ml Output Total 2800 ml Balance -1900 ml Intake Oral 900 ml Output Urine Total 2800 ml # Voids 4 General: Alert, Oriented X3 HEENT: Atraumatic, PERRLA Neck: Supple, Other (Incision site on right side of neck, clean and dry) Heart: Regular Rate, No Murmurs Abdomen: Soft, No Tenderness Extremities: No Cyanosis, No Edema, Normal Pulses Skin: Other (Pruritic rash on trunk, improved slightly today) Neuro: Normal Speech, Sensation Intact Results Lab Laboratory Tests 07/30/22 15:19: Glucometer 174H 07/30/22 20:39: Glucometer 308H 07/31/22 06:09: Glucometer 97 07/31/22 07:43: White Blood Count 15.1H, Red Blood Count 3.68L, Hemoglobin 11.5L, Hematocrit 34L , Mean Corpuscular Volume 94, Mean Corpuscular Hemoglobin 31, Mean Corpuscular Hemoglobin Concent 33, Red Cell Distribution Width 13.5, Platelet Count 170, Mean Platelet Volume 9.4, Sodium Level 132L, Potassium Level 4.1, Chloride Level 101, Carbon Dioxide Level 23, Anion Gap 8, Blood Urea Nitrogen 15, Creatinine 0.86, Estimat Glomerular Filtration Rate 91, BUN/Creatinine Ratio 17, Glucose Level 110H, Calcium Level 8.5 07/31/22 10:45: Glucometer 262H Microbiology 07/29/22 MRSA Screen - Final, Complete MRSA not isolated 07/29/22 Blood Culture - Preliminary, Resulted No growth Assessment/Plan Assessment/Plan Assess & Plan/Chief Complaint Syncope No further syncopal episodes Orthostatic pressures normal Discontinue HCTZ and lisinopril, discharge on Norvasc for HTN only Will follow up outpatient with Dr. Ackerman Lymphadenopathy Underwent Lymph node biopsy yesterday Will follow with Dr. Ambrosio outpatient, possible referral for oncology pending pathology results Non insulin dependent type II DM Will be discharged on metformin and pioglitazone Patient informed that his blood sugar will be high temporarily due to the prednisone Anemia Mild, possibly dilutional NELLI Resolved Rash Improved since admission Will discharge on prednisone Instructed to follow up with PCP or dermatology Leukocytosis Most likely due to prednisone and undergoing lymph node dissection yesterday. Clinical Quality Measures Admission Status Admission Dx Syncope SONALI MILES Jul 31, 2022 13:36
--- NOTE | 2022-07-31 14:40 | CONSULTATION REPORT ---
DATE OF SERVICE: 07/29/2022 REASON FOR CONSULTATION: Syncope. HISTORY OF PRESENT ILLNESS: The patient is a 72-year-old gentleman with a history of peripheral vascular disease, diabetes, CAD status post CABG, a former tobacco user, who presents for evaluation of syncope. The patient states that he has been doing reasonably well up until approximately three to four months prior. At that point in time, he noted the presence of progressively worsening fatigue. He also notes that he has been having episodes of lightheadedness or dizziness over the past 2 months. Interestingly, he had some hand swelling and was prescribed Lasix 20 mg p.o. daily and has been taking it faithfully. He was also on lisinopril/hydrochlorothiazide combination pill as well. He comments that he has been having some positional dizziness and he has had episodes of dizziness in the past, leading up to this event. Most recently on the day of admission, he was sitting in the kitchen; he then experienced acute onset lightheadedness, dizziness and informed his that he did not feel well. He did have fall and loss of consciousness and hit his head on the hydrogen cell tender. In that setting, EMS was called and he was brought in for evaluation. The patient notes that he has been significantly more fatigued over the past week. He does report some subjective fevers at home. He also notes night sweats to the point where it wakes him up. He notes that has been going on for approximately 2-3 months as well. Here in the emergency room, he was found to be tachycardic. His EKG demonstrates sinus tachycardia at 107 beats per minute, right bundle branch block and what I believe to be a first-degree AV block with greater than 200 milliseconds by my read. Blood pressures were stable. His labs were significant for white blood cell count of 13.9, a creatinine of 1.3. Troponins have been negative. LFTs are within normal range. Lactate is 1.6. Potassium is 3.7. Sodium is 133. He has been given 1 liter of fluids sent up to the floor. At this point in time, he states he is doing reasonably well. He did have a chest CT, which was negative for any acute process, but did demonstrate some interstitial lung disease. He also had a head CT, which was negative for any acute intracranial process. CTA demonstrated no PE as well. REVIEW OF SYSTEMS: All systems were reviewed and are negative except for what has been described in HPI. MEDICATIONS: Currently include azithromycin, ceftriaxone and saline. HOME MEDICATIONS: Include allopurinol, Norvasc 5 mg p.o. daily, aspirin 325 mg p.o. daily, lisinopril/hydrochlorothiazide 20/12.5 mg p.o. daily, levofloxacin 750 mg p.o. daily, Zantac and Lamisil. ALLERGIES: NO KNOWN DRUG ALLERGIES. SOCIAL HISTORY: The patient used to smoke tobacco, quit in 1988. He did smoke approximately 1 pack per day between 195 and 1988 for a total of 35 years. Alcohol, used to drink 2 beers daily, but now does not. Illicit, he denies. He does note a remote history of marijuana use. FAMILY HISTORY: Significant for father with a fatal SD at 57 and paternal uncle with coronary artery bypass graft. PHYSICAL EXAMINATION: VITAL SIGNS: T-max 36.4, heart rate 110s, respiratory rate 16-35, blood pressure 100-120/50-60, satting greater than 95% on room air. GENERAL: He is in no acute distress. He is resting comfortably in the bed. NECK: Soft and supple. No cervical lymphadenopathy or thyromegaly. LUNGS: Do have faint bibasilar rales, but otherwise clear with some coarse breath sounds. No wheezing or rhonchi appreciated. HEART: Regular rate and rhythm, normal S1, S2. He does have a soft systolic murmur noted approximately 3/6 along the left sternal border. No gallops or rubs were appreciated. ABDOMEN: Positive bowel sounds, soft, nontender, nondistended. No hepatosplenomegaly. EXTREMITIES: Warm and well perfused. He has no cyanosis, clubbing or edema. SKIN: He does have a pruritic papular rash throughout his trunk and down into his legs as well as on his back. LABS AND IMAGING: Significant for white blood cell count of 13.9, hematocrit of 40, platelets of 230. Flu A and B are negative COVID is negative. INR is 1.0. Sodium is 133, potassium 3.7, chloride 97, bicarbonate 25, BUN 26, creatinine is 1.3. Lactate is 1.6. Troponin I is negative x1. LFTs are within normal limits. He did have a CT scan of the chest that demonstrated an increased number of lymphadenopathy with axillary and hilar lymph nodes of concern. ASSESSMENT AND PLAN: The patient is a 72-year-old gentleman with the above-mentioned medical problems who presents for evaluation of syncope. 1. Syncope, unclear etiology. The patient does note that he was started on Lasix over the past 2 months in addition to his hydrochlorothiazide for some hand swelling. He notes that the hand swelling has improved. He notes that he has been intermittently dizzy throughout the episode of taking both Lasix and the combination hydrochlorothiazide pill. We will go ahead and check orthostatics, although this may not be positive given the fact that he has already received some IV fluids in the Emergency Room. At this point in time, I favor holding off on the Lasix as well as the hydrochlorothiazide and once his blood pressure starts to increase, we could restart his lisinopril and then consider initiation of Norvasc as well. 2. History of CAD, status post CABG. The patient does have a history of CABG. Troponins are negative. Currently, EKG is not concerning for any signs of ischemia versus infarct. We will obtain an echocardiogram. We will trend his troponins. Continue his cardiac regimen with aspirin and look to consider the addition of a statin and restart his antihypertensives as noted above. 3. Adenopathy, unclear etiology. He does have a rash, night sweats, notes fatigue over the past several months. Concern for some form of oncologic process. We will defer to hospitalist in this regard. 4. Syncope, continued. we will consider discharge with a cardiac monitor technician if no etiology is observed, but I do wonder whether this is a direct result of over diuresis. DISPOSITION: We will continue to follow along. Thank you very much for allowing me to participate in his care. Job ID: [id number] DocumentID: [id number] Dictated Date: 07/29/2022 11:48:14 Black Pickler Date: 07/29/2022 12:20:00 Dictated By: DENNY HODGE MD
--- NOTE | 2022-07-31 15:45 | Discharge Summary ---
Discharge Summary Hospital Course Was the Problem List Reviewed?: Yes Hospital Course Date of Admission: Jul 29, 2022 at 07:30 Admission Diagnosis : Family Physician/Provider: Hardy Wilder DO Date of Discharge: 07/31/22 Discharge Diagnosis: Syncope Hospital Course: Patient is a 72 year old male with a past history of CAD, quadruple bypass surgery, and uml-vrczydz-ntqyskgeo type II DM who presented to the ED on 07/29 with chief complaint of syncope. He states that he was sitting in the kitchen getting ready for work at about 5:15AM when he began to feel hot, flushed, and light-headed. He sat down and his heard him fall to the ground a few minutes later. The patient had no further syncopal episodes. The patient was given a total of 4L of NS during their stay and had their orthostatic pressures measured which were found to be normal. Cardiology was consulted. The patient's lisinopril/HCTZ 20/12.5mg PO BID was discontinued, and the patient was restarted on amlodipine 5mg PO only for HTN. His BP has remained stable on the amlodipine alone. He is scheduled to see Dr. Ackerman outpatient. On imaging, the patient had several areas of lymphadenopathy. The patient underwent a R cervical lymph node biopsy yesterday and will follow with Dr. Ambrosio outpatient to discuss the pathology results. The patient was also found to have a pruritic, erythematous rash on their trunk that they reported started 2 weeks before admission. The patient was started on 40mg prednisone PO daily which helped reduce the itching and redness. The patient had an NELLI at the time of admission with a BUN and Cr of 26 1.32 respectively. this resolved over the course of his stay and his BUN and CR measure at 15 and 0.86 today. The patient was started on azithromycin 250 mg PO daily as well as Rocephin 1g daily IV for possible pneumonia. The patient's symptoms improved over the course of their stay and they are being d ischarged today. Labs and Pending Lab Test: Laboratory Tests 07/30/22 15:19: Glucometer 174H 07/30/22 20:39: Glucometer 308H 07/31/22 06:09: Glucometer 97 07/31/22 07:43: White Blood Count 15.1H, Red Blood Count 3.68L, Hemoglobin 11.5L, Hematocrit 34L , Mean Corpuscular Volume 94, Mean Corpuscular Hemoglobin 31, Mean Corpuscular Hemoglobin Concent 33, Red Cell Distribution Width 13.5, Platelet Count 170, Mean Platelet Volume 9.4, Sodium Level 132L, Potassium Level 4.1, Chloride Level 101, Carbon Dioxide Level 23, Anion Gap 8, Blood Urea Nitrogen 15, Creatinine 0.86, Estimat Glomerular Filtration Rate 91, BUN/Creatinine Ratio 17, Glucose Level 110H, Calcium Level 8.5 07/31/22 10:45: Glucometer 262H Microbiology 07/29/22 MRSA Screen - Final, Complete MRSA not isolated 07/29/22 Blood Culture - Preliminary, Resulted No growth Home Meds Active Prednisone 20 Mg Tab 40 Mg PO DAILY@0700 Cephalexin 500 Mg Tablet 500 Mg PO BID Azithromycin 250 Mg Tablet 250 Mg PO DAILY Amlodipine Besylate 5 Mg Tablet 5 Mg PO DAILY Lipitor (Atorvastatin Calcium) 40 Mg Tablet 40 Mg PO HS Reported Ecotrin (Aspirin) 325 Mg Tablet.dr 325 Mg PO DAILY Metformin HCl ER (Metformin HCl) 500 Mg Tab.er.24h 1,000 Mg PO DAILY TAKES 2 (500MG) TABS Montelukast Sodium 10 Mg Tablet 10 Mg PO DAILY Cetirizine HCl 10 Mg Tablet 10 Mg PO HS Pioglitazone HCl 30 Mg Tablet 30 Mg PO DAILY Allopurinol 300 Mg Tablet 300 Mg PO DAILY Assessment/Pt Instructions Syncope No further syncopal episodes Orthostatic pressures normal lisinopril/HCTZ 20/12.5mg PO BID discontinued Discharged on 5mg Amlodipine only for HTN Will follow up outpatient with Dr. Ackerman Lymphadenopathy Underwent Lymph node biopsy yesterday Will follow with Dr. Ambrosio outpatient, possible referral for oncology pending pathology results Non insulin dependent type II DM Restart metformin 1000mg PO daily and pioglitazone 30mg PO daily Patient informed that his blood sugar will be high temporarily due to the prednisone 40mg daily PO Anemia Mild, possibly dilutional NELLI Resolved Rash Improved since admission Discharged on prednisone 40mg daily PO Instructed to follow up with PCP or dermatology Leukocytosis Most likely due to prednisone and undergoing lymph node dissection yesterday. Discharge Instructions Discharge Diet: Cardiac Diet Activity as Tolerated: Yes Discharge Physical Examination Vital Signs Vital Signs Date Time Temp Pulse Resp B/P (MAP) Pulse Ox O2 Delivery O2 Flow Rate FiO2 07/31/22 12:19 97 24 132/86 93 Room Air 2/8/23 11:49 36.8 07/30/22 17:10 3.00 General Appearance: No Apparent Distress, WD/WN HEENT: PERRL/EOMI, Pharynx Normal Respiratory: Lungs Clear, Normal Breath Sounds, No Accessory Muscle Use Cardiovascular: Regular Rate, Rhythm, No Edema, Normal Peripheral Pulses Gastrointestinal: Non Tender, Soft Extremity: Normal Capillary Refill, Non Tender, No Pedal Edema Skin: Warm/Dry, Rash (pruritic, erythematous rash on trunk, progressively improving since admission) Neurologic/Psychiatric: Alert, Oriented x3 Allergies: Coded Allergies: No Known Drug Allergies (Unverified , 10/16/13) Discharge Summary Date of Admission Jul 29, 2022 at 07:30 Date of Discharge Jul 31, 2022 at 12:56 Discharge Date: Jul 31, 2022 Discharge Diagnosis Syncope DIMITRISERD,SONALI Jul 31, 2022 15:20
== END 2022-07-31 12:56 | disposition home or self-care (01) ==
LOC: EDUNIT# 05:38 → ER 05:44 → INTOOBSV 07:30 → UNDOADMOB 07:30 → CSD 07:30 → UNDODISOB 07-31 12:56
PROVIDERS: ADMIT Family Medicine; ATTEND Family Medicine
DX: C82.88 Other types of follicular lymphoma, lymph nodes of multiple sites (principal); N17.9 Acute kidney failure, unspecified; E87.6 Hypokalemia; E87.1 Hypo-osmolality and hyponatremia; E86.0 Dehydration; R09.02 Hypoxemia; R21 Rash and other nonspecific skin eruption; E11.65 Type 2 diabetes mellitus with hyperglycemia; Z20.822 Contact with and (suspected) exposure to COVID-19; I25.10 Atherosclerotic heart disease of native coronary artery without angina pectoris; S00.01XA Abrasion of scalp, initial encounter; I49.1 Atrial premature depolarization; R00.0 Tachycardia, unspecified; I73.9 Peripheral vascular disease, unspecified; H54.7 Unspecified visual loss; I70.8 Atherosclerosis of other arteries; Z79.84 Long term (current) use of oral hypoglycemic drugs; Z87.891 Personal history of nicotine dependence; Z83.3 Family history of diabetes mellitus; Z82.49 Family history of ischemic heart disease and other diseases of the circulatory system; Y92.000 Kitchen of unspecified non-institutional (private) residence as the place of occurrence of the external cause; W07.XXXA Fall from chair, initial encounter; W22.09XA Striking against other stationary object, initial encounter
CPT/HCPCS: 36415; 70450; 71045; 71275; 72125; 74177; 80048; 80053; 80061; 82947; 83605; 83735; 83874; 84484; 85025; 85027; 85610; 85730; 86141; 87040; 87081; 87636; 93005; 93041; 93306; 94640; 96361; 96365; 96366; 96367; 96372; 96375; 96376